=== PATIENT | female | born 1940 | race Caucasian/White ===

== ENCOUNTER 2019-05-22 10:59 | Inpatient (IN) | payer MEDICARE, OTHER, SELFPAY ==
[2019-05-22] VITALS (10 sets, daily range): BP systolic 136–165; BP diastolic 54–70; PULSE 62–74; RESP 11–20; TEMP 36.6–36.7; O2SAT 95–100; BMI 30.7
[2019-05-22 11:22] LABS: Add Manual Diff / Slide Review NO; Basophils Absolute Auto 0 /uL (0-100); Basophils Percent Auto 0.4 % (0-2); Eosinophils Absolute Auto 100 /uL (0-450); Hematocrit 41.2 % (36-46); Hemoglobin 14.7 g/dL (12.0-16.0); Lymphocytes Absolute Auto 900 /uL (1100-4500); Mean Corpuscular HGB Conc 35.6 % (30-36); Mean Corpuscular Hemoglobin 34.5 PG (26-34); Mean Corpuscular Volume 96.7 fL (80-100); Monocytes Absolute Auto 600 /uL (0-900); Neutrophils Absolute Auto 7600 /uL (1500-7000); Neutrophils Percent Auto 81.6 % (50-75); Platelet Count 226 X10^3/uL (150-400); Red Blood Cell Count 4.26 X10^6/uL (4.0-5.2); Red Cell Distribution Width 12.8 % (11.6-14.8); White Blood Cell Count 9.3 X10^3/uL (4.5-11.0)
[2019-05-22] MEDS: SODIUM CHLORIDE 0.9% 1,000 ML 1000 ML IV (11:23)
[2019-05-22] MEDS: ONDANSETRON 4 MG/2 ML INJ IV (11:23)
[2019-05-22 11:25] LABS: Prothrombin Time 11.3 SECONDS (10.1-12.7)
[2019-05-22 11:28] LABS: PTT Partial Thromboplastin Tim 28 SECONDS (26.4-36.2)
[2019-05-22 11:30] LABS: Alanine Aminotransferase 83 IU/L (9-52); Albumin 4.2 g/dL (3.5-5.0); Albumin Globulin Ratio 1.6 (1.0-2.8); Alkaline Phosphatase 64 U/L (38-126); Aspartate Aminotransferase 115 IU/L (14-36); BUN Creatinine Ratio 11.5 (6-22); Bilirubin Total 1.9 mg/dL (0.2-1.3); Blood Urea Nitrogen 15 mg/dL (7-17); Calcium 8.6 mg/dL (8.4-10.2); Carbon Dioxide 26 mmol/L (22-32); Chloride 103 mmol/L (98-107); Creatine Kinase 56 U/L (30-135); Estimated Glomerular Filt Rate 39.4 mL/min (>60); Globulin 2.6 g/dL (1.7-4.1); Glucose 142 mg/dL (80-110); HEMOLYSIS < 15 (0-50); Potassium 3.6 mmol/L (3.4-5.1); Sodium 139 mmol/L (137-145); Total Protein 6.8 g/dL (6.3-8.2)
[2019-05-22 11:41] LABS: Troponin I < 0.012 ng/mL (0.01-0.034)
--- NOTE | 2019-05-22 11:56 | ED.ABDPAIN ---
HPI - Abdominal Pain General Chief Complaint: Abdominal Pain Stated Complaint: Diarhhea,passed out Time Seen by Provider: 05/22/19 11:21 Source: patient and family () Limitations: no limitations History of Present Illness HPI narrative: 79-year-old female comes to the emergency department with complaint of vomiting and diarrhea that is been intermittent since a week ago. Patient states yesterday her symptoms began. But today again she had diarrhea but no vomiting. She is complaining of abdominal pain sort of in the middle of her belly. Does not really radiate anywhere. She does have a little bit of lower back discomfort. This morning she was sort of sweaty. She has not any bright red blood or melanotic stools. This is her 3rd episode in several months. The prior times episodes lasted a couple hours and then resolved. She has had no fevers or chills otherwise. She denies any chest pressure or pain, no shortness of breath. She was sitting on the toilet she just had diarrhea and had a syncopal episode that was witnessed by her . She states that her head rolled back her eyes rolled into the back of her head and she was out for about 30 seconds and then returned to normal almost immediately. Patient takes atenolol for hypertension, dyslipidemia. No diabetes, no prior heart attacks or strokes. Per she has had a complete hysterectomy, patient was not unsure. No allergies to medications, no tobacco, rare alcohol, no illicit. Dr. Little from [facility] is her primary care. Related Data Home Medications Medication Instructions Recorded Confirmed amlodipine 5 mg PO DAILY 05/22/19 05/22/19 Allergies Allergy/AdvReac Type Severity Reaction Status Date / Time No Known Drug Allergies Allergy Verified 05/22/19 11:10 Review of Systems Review of Systems ROS Unobtainable: All systems reviewed & are unremarkable except as noted in HPI and below Constitutional Denies chills, Reports excessive sweating (This morning), Denies fever(s), Denies lethargy and Denies weakness Cardiovascular Denies chest pain, Reports syncope (X1), Denies irregular heart rhythm, Denies lightheadedness, Denies palpitations, Denies dyspnea, Denies dyspnea on exertion and Denies orthopnea Respiratory Denies change in phlegm color, Denies chest congestion, Denies cough, Denies dyspnea, Denies dyspnea on exertion and Denies wheezing Gastrointestinal Gastrointestinal: Reports abdominal pain, Denies melena, Denies hematochezia, Denies change in bowel habits, Denies constipation, Reports diarrhea, Reports nausea, Reports vomiting and Denies hematemesis Genitourinary Denies hematuria, Denies urinary frequency, Denies dysuria, Denies flank pain, Denies urinary incontinence and Denies urinary urgency Musculoskeletal Reports back pain (Mild low back pain), Denies numbness and Denies tingling Integumentary/Breasts Denies rash Neurologic Denies confusion, Reports syncope (X1), Denies focal weakness, Denies numbness, Denies tingling and Denies weakness Psychiatric Denies confusion Endocrine Reports excessive sweating (This morning) and Denies palpitations Allergic/Immunologic Denies wheezing [facility] Medical History (Updated 05/22/19 @ 15:26 by Karen Hicks DO) Dyslipidemia (Chronic) Hypertension (Chronic) Surgical History Status post breast reduction Status post hysterectomy Family History (Updated 02/13/15 @ 00:00 by Conversion Provider) Brother Diabetes mellitus Hypertension Father Heart disease Hypertension Stroke Sister Heart disease Hypertension High cholesterol Stroke Sister High cholesterol Social History Smoking Status: Former smoker Family History Brother Diabetes mellitus Hypertension Father Heart disease Hypertension Stroke Sister Heart disease Hypertension High cholesterol Stroke Sister High cholesterol Social History (Updated 05/22/19 @ 12:00 by Karen Hicks DO) marital status: details: 10 years household members: spouse Smoking Status: Former smoker alcohol intake: current substance use type: does not use Exam Narrative Exam Narrative: GENERAL: Alert and oriented x three, obese, well-appearing elderly female in mild distress. HEENT: Head normocephalic, atraumatic, EOMI, pupils reactive, face symmetric, moist mucous membranes NECK: Supple, full range of motion CARDIOVASCULAR: Regular rate and rhythm without murmurs, rubs or gallops. RESPIRATORY: Breath sounds equal bilaterally, no wheezes rales or rhonchi. ABDOMEN: Soft, very mild periumbilical tenderness. Normoactive bowel sounds all 4 quadrants. No guarding or rebound, rigidity, no mass, no pulsatile mass or bruit. : No CVA tenderness EXTREMITIES: Normal range of motion, no clubbing or edema. 2+ pulses bilateral lower extremities. Neurovascularly intact NEUROLOGICAL: Cranial nerves II through XII grossly intact. Moving all extremities SKIN: Warm, dry, no petechiae, no rashes or lesions. Initial Vital Signs Initial Vital Signs: Vital Signs Temperature 98.1 F 05/22/19 11:07 Pulse Rate 65 05/22/19 11:07 Respiratory Rate 14 05/22/19 11:07 Pulse Oximetry 100 05/22/19 11:07 Course Orders Ordered: ED Orders 05/22/19 11:10 EKG-12 Lead Stat 05/22/19 11:11 Complete Blood Count AUTO DIFF Stat Comprehensive Metabolic Panel Stat Lipase Stat Partial Thromboplastin Time Stat Prothrombin Time INR Stat cardiac panel [Troponin & CK Cardiac Panel] Stat 05/22/19 11:55 CT abdomen pelvis w con Stat Lactate (Lactic Acid) Stat 05/22/19 13:29 US abdomen limited Stat 05/22/19 13:40 Urine Culture Stat Urine Microscopic Stat 05/22/19 17:13 Education, smoking cessation ONGOING 05/23/19 05:00 Complete Blood Count AUTO DIFF Routine Comprehensive Metabolic Panel Routine Acetaminophen (Tylenol) 650 mg PO Q6HR PRN PRN Reason: As Needed for Fever/Mild Pain Amlodipine Besylate (Norvasc) 5 mg PO DAILY ARSENIO Bisacodyl (Dulcolax) 10 mg PO DAILY PRN PRN Reason: Constipation Enoxaparin Sodium (Lovenox) 30 mg SUBCUT DAILY [facility] Sodium Chloride (Normal Saline 0.9%) 1,000 mls @ 150 mls/hr IV BOLUS ONE Stop: 05/22/19 20:25 Last Infusion: 05/22/19 16:05 Dose: 150 mls/hr Admin: 05/22/19 13:55 Dose: 150 mls/hr Lactated Ringer's (Lactated Ringers) 1,000 mls @ 100 mls/hr IV CONT ARSENIO Last Admin: 05/22/19 17:47 Dose: 100 mls/hr Ondansetron HCl (Zofran) 4 mg IV Q4HR PRN PRN Reason: Nausea And Vomiting Discontinued Medications Sodium Chloride (Normal Saline 0.9%) 1,000 mls @ 1,000 mls/hr IV BOLUS ONE Stop: 05/22/19 12:10 Last Infusion: 05/22/19 13:00 Dose: 0 mls/hr Admin: 05/22/19 11:23 Dose: 1,000 mls/hr Ondansetron HCl (Zofran) 4 mg IV NOW ONE Stop: 05/22/19 11:11 Last Admin: 05/22/19 11:23 Dose: 4 mg Vital Signs - 8 hr 05/22/19 11:07 05/22/19 11:30 05/22/19 12:06 Temperature 98.1 F Pulse Rate 65 62 68 Respiratory Rate 14 16 11 L Blood Pressure Blood Pressure [Right Arm] 136/61 154/54 H Pulse Oximetry 100 97 97 05/22/19 12:30 05/22/19 13:30 05/22/19 14:00 Temperature Pulse Rate 70 68 69 Respiratory Rate 14 13 Blood Pressure Blood Pressure [Right Arm] 144/54 H 165/66 H 147/63 H Pulse Oximetry 98 100 05/22/19 15:00 05/22/19 16:37 Temperature 97.9 F Pulse Rate 71 73 Respiratory Rate 20 Blood Pressure 163/70 H Blood Pressure [Right Arm] 153/59 H Pulse Oximetry 97 97 MDM - Abdominal Pain Lab Data Attestation: I reviewed the patient's lab results. Result diagrams: 05/22/19 11:11 05/22/19 11:11 Lab Results 05/22/19 05/22/19 05/22/19 Range/Units 11:11 11:11 11:11 WBC 9.3 (4.5-11.0) X10^3/uL RBC 4.26 (4.0-5.2) X10^6/uL Hgb 14.7 (12.0-16.0) g/dL Hct 41.2 (36-46) % MCV 96.7 (80-100) fL MCH 34.5 H (26-34) PG MCHC 35.6 (30-36) % RDW 12.8 (11.6-14.8) % Plt Count 226 (150-400) X10^3/uL Neut % (Auto) 81.6 H (50-75) % Lymph % (Auto) 10.0 L (25-40) % [place] % (Auto) 7.0 (3-14) % Eos % (Auto) 1.0 L (2-4) % Baso % (Auto) 0.4 (0-2) % Neut # (Auto) 7600 H (1640-2354) /uL Lymph # (Auto) 900 L (9048-3780) /uL [place] # (Auto) 600 (0-900) /uL Eos # (Auto) 100 (0-450) /uL Baso # (Auto) 0 (0-100) /uL PT 11.3 (10.1-12.7) SECONDS INR 1.0 (0.9-1.3) APTT 28 (26.4-36.2) SECONDS Sodium 139 (137-145) mmol/L Potassium 3.6 (3.4-5.1) mmol/L Chloride 103 (98-107) mmol/L Carbon Dioxide 26 (22-32) mmol/L BUN 15 (7-17) mg/dL Creatinine 1.30 H (0.52-1.04) mg/dL Estimated GFR 39.4 L (>60) mL/min BUN/Creatinine Ratio 11.5 (6-22) Glucose 142 H (80-110) mg/dL Lactate (0.7-2.1) mmol/L Calcium 8.6 (8.4-10.2) mg/dL Total Bilirubin 1.9 H (0.2-1.3) mg/dL AST 115 H (14-36) IU/L ALT 83 H (9-52) IU/L Alkaline Phosphatase 64 (38-126) U/L Total Creatine Kinase 56 (30-135) U/L CK-MB (CK-2) TNP CK-MB (CK-2) Rel Index TNP Troponin I < 0.012 (0.01-0.034) ng/mL Total Protein 6.8 (6.3-8.2) g/dL Albumin 4.2 (3.5-5.0) g/dL Globulin 2.6 (1.7-4.1) g/dL Albumin/Globulin Ratio 1.6 (1.0-2.8) Lipase 9563 H (23-300) U/L Urine RBC (0-5/HPF) Urine WBC (0-5/HPF) Ur Squamous Epith Cells (0-5/HPF) Urine Bacteria (None) Ur Culture Indicated? 05/22/19 05/22/19 Range/Units 11:55 13:40 WBC (4.5-11.0) X10^3/uL RBC (4.0-5.2) X10^6/uL Hgb (12.0-16.0) g/dL Hct (36-46) % MCV (80-100) fL MCH (26-34) PG MCHC (30-36) % RDW (11.6-14.8) % Plt Count (150-400) X10^3/uL Neut % (Auto) (50-75) % Lymph % (Auto) (25-40) % [place] % (Auto) (3-14) % Eos % (Auto) (2-4) % Baso % (Auto) (0-2) % Neut # (Auto) (2961-5952) /uL Lymph # (Auto) (9448-6789) /uL [place] # (Auto) (0-900) /uL Eos # (Auto) (0-450) /uL Baso # (Auto) (0-100) /uL PT (10.1-12.7) SECONDS INR (0.9-1.3) APTT (26.4-36.2) SECONDS Sodium (137-145) mmol/L Potassium (3.4-5.1) mmol/L Chloride (98-107) mmol/L Carbon Dioxide (22-32) mmol/L BUN (7-17) mg/dL Creatinine (0.52-1.04) mg/dL Estimated GFR (>60) mL/min BUN/Creatinine Ratio (6-22) Glucose (80-110) mg/dL Lactate 1.2 (0.7-2.1) mmol/L Calcium (8.4-10.2) mg/dL Total Bilirubin (0.2-1.3) mg/dL AST (14-36) IU/L ALT (9-52) IU/L Alkaline Phosphatase (38-126) U/L Total Creatine Kinase (30-135) U/L CK-MB (CK-2) CK-MB (CK-2) Rel Index Troponin I (0.01-0.034) ng/mL Total Protein (6.3-8.2) g/dL Albumin (3.5-5.0) g/dL Globulin (1.7-4.1) g/dL Albumin/Globulin Ratio (1.0-2.8) Lipase (23-300) U/L Urine RBC None seen (0-5/HPF) Urine WBC 0-1/hpf (0-5/HPF) Ur Squamous Epith Cells None seen (0-5/HPF) Urine Bacteria Few (2-10) H (None) Ur Culture Indicated? Specimen cultured Point of care testing: Urine Dip Bedside Urine Glucose Negative Bedside Urine Bilirubin - Negative Bedside Urine Ketone - Negative Urine Specific [place] 1.010 Bedside Urine Occult Blood - Negative Bedside Urine pH 6.5 Bedside Urine Protein - Negative Bedside Urine Urobilinogen - Negative Bedside Urine Nitrite - Negative Bedside Urine Leukocytes + [address] scan - abdomen: Radiologist's impression: [address] [address] [address] Scan Report Signed Patient: Sindi Hewitt EMR#: [id number] : 9Acct:[id number] Age/Sex: 79 / FDate of Service: 05/22/19 Loc: ED Accession Number: [id number] Procedure: CT abdomen pelvis w con Ordering Provider: Karen Hicks D.O. PROCEDURE: CT ABDOMEN PELVIS W CON INDICATIONS: abd pain, vomit/diarrhia x 1 week, syncope today TECHNIQUE: After the administration of intravenous contrast, 5 mm thick sections acquired from the diaphragm to the symphysis. 5 mm coronal and sagittal reformats were acquired. For radiation dose reduction, the following was used: automated exposure control, adjustment of mA and/or kV according to patient size. COMPARISON: None. FINDINGS: Image quality: Excellent. ABDOMEN: Lung bases: Lung bases are clear. Heart size is at the upper limits of normal. Mild distal esophageal wall edema and small epiphrenic diverticulum/hiatal hernia. Solid organs: Liver is normal in size and enhancement. Gallbladder is distended but appears otherwise normal. Pancreas enhances normally. The pancreatic duct is moderately dilated measuring 4 mm in the head and neck. There is mild central intrahepatic biliary dilatation. The extrahepatic common duct is normal caliber for patient's age. Spleen is normal in size and enhancement. The there is a small hypodense nodule near the hilum measuring about 1.1 cm one. No adrenal nodules. Kidneys demonstrate normal size and enhancement, without hydronephrosis. Peritoneum and bowel: There is decompression, numerous diverticula, and moderate wall thickening involving the sigmoid colon with mild adjacent fat stranding. The entire colon demonstrates mild wall edema and decompression. There are no other focal pericolonic inflammatory changes. Small bowel loops are fairly decompressed diffusely. A normal appendix is identified. Gastric mucosa is mildly hyperemic. No significant perigastric inflammation. No free fluid or air. Nodes and vessels: No retroperitoneal or mesenteric adenopathy by size criteria. Aorta and inferior vena cava are normal in size. Moderate aortic calcification. Miscellaneous: Tiny umbilical hernia.. PELVIS: Genitourinary: The urinary bladder is partially decompressed. The uterus and ovaries are surgically absent. No Miscellaneous: No inguinal hernias or adenopathy. Bones: No suspicious bony lesions. No vertebral body compression fractures. IMPRESSION: 1. Findings of probable acute on chronic diverticulitis involving the sigmoid colon. 2. Diffuse colonic spasm with mild wall edema suggesting either reactive colitis or potentially infectious or inflammatory colitis involving much of the rest of the colon. 3. Mild pancreatic or biliary ductal dilatation including gallbladder dilatation. Correlate clinically and with LFTs. No visible mechanical obstruction. 4. Mild distal esophageal edema and upper phrenic diverticulum, probably accentuated by history of vomiting. No evidence of small bowel obstruction. Dictated by: Briana Arevalo M.D. on 05/22/2019 at 11:27 Approved by: Briana Arevalo M.D. on 05/22/2019 at 11:37 US - abdomen: Radiologist's impression: [place] [address] Ultrasound Report Signed Patient: Sindi Hewitt EMR#: [id number] : 9Acct:[id number] Age/Sex: 79 / FDate of Service: 05/22/19 Loc: ED Accession Number: [id number] Procedure: US abdomen limited Ordering Provider: Karen Hicks D.O. PROCEDURE: US ABDOMEN LIMITED INDICATIONS: PANCREATITIS TECHNIQUE: Real-time focused scanning was performed of the abdomen, with image documentation. COMPARISON: [facility], CT, CT ABDOMEN PELVIS W CON, 05/22/2019, 11:54. FINDINGS: The gallbladder is distended, contains a small amount of sludge layering dependently, but no stone. It has a normal wall thickness at less than 1 mm. The visible portions of the common bile duct measures 7.7 mm, normal for patient's age. Pancreatic duct is mildly dilated measuring up to 4 mm. pancreas has an otherwise normal sonographic appearance. IMPRESSION: 1. There is a small amount of gallbladder sludge layering dependently but no visible stone. 2. Common duct within normal limits for patient's age. No definite choledocholithiasis. 3. Mildly dilated pancreatic duct consistent with CT appearance. If there is continued concern for distal common duct obstruction, MRCP imaging is recommended. Dictated by: Briana Arevalo M.D. on 05/22/2019 at 12:57 Approved by: Briana Arevalo M.D. on 05/22/2019 at 13:01 ECG Data Attestation: I personally reviewed and interpreted this ECG as follows: Prior ECG tracings: not available for review Interpretation: Sinus rhythm rate of 64 RI 169 QRS of 92 and QTC of 450. Q-wave in [address] elevation depression appreciated. MDM Narrative Medical decision making narrative: Patient comes in the with abdominal pain and intermittent vomiting and diarrhea. She appears at pancreatitis with a lipase of 9500, bilirubin and AST LT are all elevated. The patient's CT shows a possible ductal dilation. Some possible thickening of the colon wall. The patient ultrasound does not show clear ductal dilation an MRCP is potentially recommended. The patient likely does not need ERCP at this time. Spoke with Dr. umaña to accepts. Patient has been afebrile, she does not have a white count. Creatinine is 1.3 I do not have labs for comparison. Troponin was negative with the EKG with no acute findings. Patient did have a syncopal episode while on the toilet. Discharge Plan Departure Patient Disposition: Admitted As Inpatient Clinical Impression: Acute pancreatitis Discharge Date/Time: 05/22/19 16:00 Interventions: ED Discharge Assessment Last Done: 05/22/19 16:06 Admit Date/Time: 05/22/19 15:46 Admit Provider: Daniel Reinoso
--- NOTE | 2019-05-22 12:01 | ED_ITS ---
HPI - Abdominal Pain General Chief Complaint: Abdominal Pain Stated Complaint: Diarhhea,passed out Time Seen by Provider: 05/22/19 11:21 Source: patient and family () Limitations: no limitations History of Present Illness HPI narrative: 79-year-old female comes to the emergency department with complaint of vomiting and diarrhea that is been intermittent since a week ago. Patient states yesterday her symptoms began. But today again she had diarrhea but no vomiting. She is complaining of abdominal pain sort of in the middle of her belly. Does not really radiate anywhere. She does have a little bit of lower back discomfort. This morning she was sort of sweaty. She has not any bright red blood or melanotic stools. This is her 3rd episode in several months. The prior times episodes lasted a couple hours and then resolved. She has had no fevers or chills otherwise. She denies any chest pressure or pain, no shortness of breath. She was sitting on the toilet she just had diarrhea and had a syncopal episode that was witnessed by her . She states that her head rolled back her eyes rolled into the back of her head and she was out for about 30 seconds and then returned to normal almost immediately. Patient takes atenolol for hypertension, dyslipidemia. No diabetes, no prior heart attacks or strokes. Per she has had a complete hysterectomy, patient was not unsure. No allergies to medications, no tobacco, rare alcohol, no illicit. Dr. Little from [facility] is her primary care. Related Data Home Medications Medication Instructions Recorded Confirmed amlodipine 5 mg PO DAILY 05/22/19 05/22/19 Allergies Allergy/AdvReac Type Severity Reaction Status Date / Time No Known Drug Allergies Allergy Verified 05/22/19 11:10 Review of Systems Review of Systems ROS Unobtainable: All systems reviewed & are unremarkable except as noted in HPI and below Constitutional Denies chills, Reports excessive sweating (This morning), Denies fever(s), Denies lethargy and Denies weakness Cardiovascular Denies chest pain, Reports syncope (X1), Denies irregular heart rhythm, Denies lightheadedness, Denies palpitations, Denies dyspnea, Denies dyspnea on exertion and Denies orthopnea Respiratory Denies change in phlegm color, Denies chest congestion, Denies cough, Denies dyspnea, Denies dyspnea on exertion and Denies wheezing Gastrointestinal Gastrointestinal: Reports abdominal pain, Denies melena, Denies hematochezia, Denies change in bowel habits, Denies constipation, Reports diarrhea, Reports nausea, Reports vomiting and Denies hematemesis Genitourinary Denies hematuria, Denies urinary frequency, Denies dysuria, Denies flank pain, Denies urinary incontinence and Denies urinary urgency Musculoskeletal Reports back pain (Mild low back pain), Denies numbness and Denies tingling Integumentary/Breasts Denies rash Neurologic Denies confusion, Reports syncope (X1), Denies focal weakness, Denies numbness, Denies tingling and Denies weakness Psychiatric Denies confusion Endocrine Reports excessive sweating (This morning) and Denies palpitations Allergic/Immunologic Denies wheezing [facility] Medical History (Updated 05/22/19 @ 15:26 by Karen Hicks DO) Dyslipidemia (Chronic) Hypertension (Chronic) Surgical History Status post breast reduction Status post hysterectomy Family History (Updated 02/13/15 @ 00:00 by Conversion Provider) Brother Diabetes mellitus Hypertension Father Heart disease Hypertension Stroke Sister Heart disease Hypertension High cholesterol Stroke Sister High cholesterol Social History Smoking Status: Former smoker Family History Brother Diabetes mellitus Hypertension Father Heart disease Hypertension Stroke Sister Heart disease Hypertension High cholesterol Stroke Sister High cholesterol Social History (Updated 05/22/19 @ 12:00 by Karen Hicks DO) marital status: details: 10 years household members: spouse Smoking Status: Former smoker alcohol intake: current substance use type: does not use Exam Narrative Exam Narrative: GENERAL: Alert and oriented x three, obese, well-appearing elderly female in mild distress. HEENT: Head normocephalic, atraumatic, EOMI, pupils reactive, face symmetric, moist mucous membranes NECK: Supple, full range of motion CARDIOVASCULAR: Regular rate and rhythm without murmurs, rubs or gallops. RESPIRATORY: Breath sounds equal bilaterally, no wheezes rales or rhonchi. ABDOMEN: Soft, very mild periumbilical tenderness. Normoactive bowel sounds all 4 quadrants. No guarding or rebound, rigidity, no mass, no pulsatile mass or bruit. : No CVA tenderness EXTREMITIES: Normal range of motion, no clubbing or edema. 2+ pulses bilateral lower extremities. Neurovascularly intact NEUROLOGICAL: Cranial nerves II through XII grossly intact. Moving all extremities SKIN: Warm, dry, no petechiae, no rashes or lesions. Initial Vital Signs Initial Vital Signs: Vital Signs Temperature 98.1 F 05/22/19 11:07 Pulse Rate 65 05/22/19 11:07 Respiratory Rate 14 05/22/19 11:07 Pulse Oximetry 100 05/22/19 11:07 Course Orders Ordered: ED Orders 05/22/19 11:10 EKG-12 Lead Stat 05/22/19 11:11 Complete Blood Count AUTO DIFF Stat Comprehensive Metabolic Panel Stat Lipase Stat Partial Thromboplastin Time Stat Prothrombin Time INR Stat cardiac panel [Troponin & CK Cardiac Panel] Stat 05/22/19 11:55 CT abdomen pelvis w con Stat Lactate (Lactic Acid) Stat 05/22/19 13:29 US abdomen limited Stat 05/22/19 13:40 Urine Culture Stat Urine Microscopic Stat 05/22/19 17:13 Education, smoking cessation ONGOING 05/23/19 05:00 Complete Blood Count AUTO DIFF Routine Comprehensive Metabolic Panel Routine Acetaminophen (Tylenol) 650 mg PO Q6HR PRN PRN Reason: As Needed for Fever/Mild Pain Amlodipine Besylate (Norvasc) 5 mg PO DAILY ARSENIO Bisacodyl (Dulcolax) 10 mg PO DAILY PRN PRN Reason: Constipation Enoxaparin Sodium (Lovenox) 30 mg SUBCUT DAILY [facility] Sodium Chloride (Normal Saline 0.9%) 1,000 mls @ 150 mls/hr IV BOLUS ONE Stop: 05/22/19 20:25 Last Infusion: 05/22/19 16:05 Dose: 150 mls/hr Admin: 05/22/19 13:55 Dose: 150 mls/hr Lactated Ringer's (Lactated Ringers) 1,000 mls @ 100 mls/hr IV CONT ARSENIO Last Admin: 05/22/19 17:47 Dose: 100 mls/hr Ondansetron HCl (Zofran) 4 mg IV Q4HR PRN PRN Reason: Nausea And Vomiting Discontinued Medications Sodium Chloride (Normal Saline 0.9%) 1,000 mls @ 1,000 mls/hr IV BOLUS ONE Stop: 05/22/19 12:10 Last Infusion: 05/22/19 13:00 Dose: 0 mls/hr Admin: 05/22/19 11:23 Dose: 1,000 mls/hr Ondansetron HCl (Zofran) 4 mg IV NOW ONE Stop: 05/22/19 11:11 Last Admin: 05/22/19 11:23 Dose: 4 mg Vital Signs - 8 hr 05/22/19 11:07 05/22/19 11:30 05/22/19 12:06 Temperature 98.1 F Pulse Rate 65 62 68 Respiratory Rate 14 16 11 L Blood Pressure Blood Pressure [Right Arm] 136/61 154/54 H Pulse Oximetry 100 97 97 05/22/19 12:30 05/22/19 13:30 05/22/19 14:00 Temperature Pulse Rate 70 68 69 Respiratory Rate 14 13 Blood Pressure Blood Pressure [Right Arm] 144/54 H 165/66 H 147/63 H Pulse Oximetry 98 100 05/22/19 15:00 05/22/19 16:37 Temperature 97.9 F Pulse Rate 71 73 Respiratory Rate 20 Blood Pressure 163/70 H Blood Pressure [Right Arm] 153/59 H Pulse Oximetry 97 97 MDM - Abdominal Pain Lab Data Attestation: I reviewed the patient's lab results. Result diagrams: 05/22/19 11:11 05/22/19 11:11 Lab Results 05/22/19 05/22/19 05/22/19 Range/Units 11:11 11:11 11:11 WBC 9.3 (4.5-11.0) X10^3/uL RBC 4.26 (4.0-5.2) X10^6/uL Hgb 14.7 (12.0-16.0) g/dL Hct 41.2 (36-46) % MCV 96.7 (80-100) fL MCH 34.5 H (26-34) PG MCHC 35.6 (30-36) % RDW 12.8 (11.6-14.8) % Plt Count 226 (150-400) X10^3/uL Neut % (Auto) 81.6 H (50-75) % Lymph % (Auto) 10.0 L (25-40) % [place] % (Auto) 7.0 (3-14) % Eos % (Auto) 1.0 L (2-4) % Baso % (Auto) 0.4 (0-2) % Neut # (Auto) 7600 H (3508-8859) /uL Lymph # (Auto) 900 L (7735-5729) /uL [place] # (Auto) 600 (0-900) /uL Eos # (Auto) 100 (0-450) /uL Baso # (Auto) 0 (0-100) /uL PT 11.3 (10.1-12.7) SECONDS INR 1.0 (0.9-1.3) APTT 28 (26.4-36.2) SECONDS Sodium 139 (137-145) mmol/L Potassium 3.6 (3.4-5.1) mmol/L Chloride 103 (98-107) mmol/L Carbon Dioxide 26 (22-32) mmol/L BUN 15 (7-17) mg/dL Creatinine 1.30 H (0.52-1.04) mg/dL Estimated GFR 39.4 L (>60) mL/min BUN/Creatinine Ratio 11.5 (6-22) Glucose 142 H (80-110) mg/dL Lactate (0.7-2.1) mmol/L Calcium 8.6 (8.4-10.2) mg/dL Total Bilirubin 1.9 H (0.2-1.3) mg/dL AST 115 H (14-36) IU/L ALT 83 H (9-52) IU/L Alkaline Phosphatase 64 (38-126) U/L Total Creatine Kinase 56 (30-135) U/L CK-MB (CK-2) TNP CK-MB (CK-2) Rel Index TNP Troponin I < 0.012 (0.01-0.034) ng/mL Total Protein 6.8 (6.3-8.2) g/dL Albumin 4.2 (3.5-5.0) g/dL Globulin 2.6 (1.7-4.1) g/dL Albumin/Globulin Ratio 1.6 (1.0-2.8) Lipase 9563 H (23-300) U/L Urine RBC (0-5/HPF) Urine WBC (0-5/HPF) Ur Squamous Epith Cells (0-5/HPF) Urine Bacteria (None) Ur Culture Indicated? 05/22/19 05/22/19 Range/Units 11:55 13:40 WBC (4.5-11.0) X10^3/uL RBC (4.0-5.2) X10^6/uL Hgb (12.0-16.0) g/dL Hct (36-46) % MCV (80-100) fL MCH (26-34) PG MCHC (30-36) % RDW (11.6-14.8) % Plt Count (150-400) X10^3/uL Neut % (Auto) (50-75) % Lymph % (Auto) (25-40) % [place] % (Auto) (3-14) % Eos % (Auto) (2-4) % Baso % (Auto) (0-2) % Neut # (Auto) (3601-6025) /uL Lymph # (Auto) (4577-8058) /uL [place] # (Auto) (0-900) /uL Eos # (Auto) (0-450) /uL Baso # (Auto) (0-100) /uL PT (10.1-12.7) SECONDS INR (0.9-1.3) APTT (26.4-36.2) SECONDS Sodium (137-145) mmol/L Potassium (3.4-5.1) mmol/L Chloride (98-107) mmol/L Carbon Dioxide (22-32) mmol/L BUN (7-17) mg/dL Creatinine (0.52-1.04) mg/dL Estimated GFR (>60) mL/min BUN/Creatinine Ratio (6-22) Glucose (80-110) mg/dL Lactate 1.2 (0.7-2.1) mmol/L Calcium (8.4-10.2) mg/dL Total Bilirubin (0.2-1.3) mg/dL AST (14-36) IU/L ALT (9-52) IU/L Alkaline Phosphatase (38-126) U/L Total Creatine Kinase (30-135) U/L CK-MB (CK-2) CK-MB (CK-2) Rel Index Troponin I (0.01-0.034) ng/mL Total Protein (6.3-8.2) g/dL Albumin (3.5-5.0) g/dL Globulin (1.7-4.1) g/dL Albumin/Globulin Ratio (1.0-2.8) Lipase (23-300) U/L Urine RBC None seen (0-5/HPF) Urine WBC 0-1/hpf (0-5/HPF) Ur Squamous Epith Cells None seen (0-5/HPF) Urine Bacteria Few (2-10) H (None) Ur Culture Indicated? Specimen cultured Point of care testing: Urine Dip Bedside Urine Glucose Negative Bedside Urine Bilirubin - Negative Bedside Urine Ketone - Negative Urine Specific [place] 1.010 Bedside Urine Occult Blood - Negative Bedside Urine pH 6.5 Bedside Urine Protein - Negative Bedside Urine Urobilinogen - Negative Bedside Urine Nitrite - Negative Bedside Urine Leukocytes + [address] scan - abdomen: Radiologist's impression: [address] [address] [address] Scan Report Signed Patient: Sindi Hewitt EMR#: [id number] : 9Acct:[id number] Age/Sex: 79 / FDate of Service: 05/22/19 Loc: ED Accession Number: [id number] Procedure: CT abdomen pelvis w con Ordering Provider: Karen Hicks D.O. PROCEDURE: CT ABDOMEN PELVIS W CON INDICATIONS: abd pain, vomit/diarrhia x 1 week, syncope today TECHNIQUE: After the administration of intravenous contrast, 5 mm thick sections acquired from the diaphragm to the symphysis. 5 mm coronal and sagittal reformats were acquired. For radiation dose reduction, the following was used: automated exposure control, adjustment of mA and/or kV according to patient size. COMPARISON: None. FINDINGS: Image quality: Excellent. ABDOMEN: Lung bases: Lung bases are clear. Heart size is at the upper limits of normal. Mild distal esophageal wall edema and small epiphrenic diverticulum/hiatal hernia. Solid organs: Liver is normal in size and enhancement. Gallbladder is distended but appears otherwise normal. Pancreas enhances normally. The pancreatic duct is moderately dilated measuring 4 mm in the head and neck. There is mild central intrahepatic biliary dilatation. The extrahepatic common duct is normal caliber for patient's age. Spleen is normal in size and enhancement. The there is a small hypodense nodule near the hilum measuring about 1.1 cm one. No adrenal nodules. Kidneys demonstrate normal size and enhancement, without hydronephrosis. Peritoneum and bowel: There is decompression, numerous diverticula, and moderate wall thickening involving the sigmoid colon with mild adjacent fat stranding. The entire colon demonstrates mild wall edema and decompression. There are no other focal pericolonic inflammatory changes. Small bowel loops are fairly decompressed diffusely. A normal appendix is identified. Gastric mucosa is mildly hyperemic. No significant perigastric inflammation. No free fluid or air. Nodes and vessels: No retroperitoneal or mesenteric adenopathy by size criteria. Aorta and inferior vena cava are normal in size. Moderate aortic calcification. Miscellaneous: Tiny umbilical hernia.. PELVIS: Genitourinary: The urinary bladder is partially decompressed. The uterus and ovaries are surgically absent. No Miscellaneous: No inguinal hernias or adenopathy. Bones: No suspicious bony lesions. No vertebral body compression fractures. IMPRESSION: 1. Findings of probable acute on chronic diverticulitis involving the sigmoid colon. 2. Diffuse colonic spasm with mild wall edema suggesting either reactive colitis or potentially infectious or inflammatory colitis involving much of the rest of the colon. 3. Mild pancreatic or biliary ductal dilatation including gallbladder dilatation. Correlate clinically and with LFTs. No visible mechanical obstruction. 4. Mild distal esophageal edema and upper phrenic diverticulum, probably accentuated by history of vomiting. No evidence of small bowel obstruction. Dictated by: Briana Arevalo M.D. on 05/22/2019 at 11:27 Approved by: Briana Arevalo M.D. on 05/22/2019 at 11:37 US - abdomen: Radiologist's impression: [place] [address] Ultrasound Report Signed Patient: Sindi Hewitt EMR#: [id number] : 9Acct:[id number] Age/Sex: 79 / FDate of Service: 05/22/19 Loc: ED Accession Number: [id number] Procedure: US abdomen limited Ordering Provider: Karen Hicks D.O. PROCEDURE: US ABDOMEN LIMITED INDICATIONS: PANCREATITIS TECHNIQUE: Real-time focused scanning was performed of the abdomen, with image documentation. COMPARISON: [facility], CT, CT ABDOMEN PELVIS W CON, 05/22/2019, 11:54. FINDINGS: The gallbladder is distended, contains a small amount of sludge layering dependently, but no stone. It has a normal wall thickness at less than 1 mm. The visible portions of the common bile duct measures 7.7 mm, normal for patient's age. Pancreatic duct is mildly dilated measuring up to 4 mm. pancreas has an otherwise normal sonographic appearance. IMPRESSION: 1. There is a small amount of gallbladder sludge layering dependently but no visible stone. 2. Common duct within normal limits for patient's age. No definite choledocholithiasis. 3. Mildly dilated pancreatic duct consistent with CT appearance. If there is continued concern for distal common duct obstruction, MRCP imaging is recommended. Dictated by: Briana Arevalo M.D. on 05/22/2019 at 12:57 Approved by: Briana Arevalo M.D. on 05/22/2019 at 13:01 ECG Data Attestation: I personally reviewed and interpreted this ECG as follows: Prior ECG tracings: not available for review Interpretation: Sinus rhythm rate of 64 ME 169 QRS of 92 and QTC of 450. Q-wave in [address] elevation depression appreciated. MDM Narrative Medical decision making narrative: Patient comes in the with abdominal pain and intermittent vomiting and diarrhea. She appears at pancreatitis with a lipase of 9500, bilirubin and AST LT are all elevated. The patient's CT shows a possible ductal dilation. Some possible thickening of the colon wall. The patient ultrasound does not show clear ductal dilation an MRCP is potentially recommended. The patient likely does not need ERCP at this time. Spoke with Dr. umaña to accepts. Patient has been afebrile, she does not have a white count. Creatinine is 1.3 I do not have labs for comparison. Troponin was negative with the EKG with no acute findings. Patient did have a syncopal episode while on the toilet. Discharge Plan Departure Patient Disposition: Admitted As Inpatient Clinical Impression: Acute pancreatitis Discharge Date/Time: 05/22/19 16:00 Interventions: ED Discharge Assessment Last Done: 05/22/19 16:06 Admit Date/Time: 05/22/19 15:46 Admit Provider: Daniel Reinoso
[2019-05-22 12:15] LABS: Lipase 9563 U/L (23-300)
[2019-05-22 12:19] LABS: Lactate (Lactic Acid) 1.2 mmol/L (0.7-2.1)
--- NOTE | 2019-05-22 13:29 | DI.US.S_ITS ---
PROCEDURE: US ABDOMEN LIMITED INDICATIONS: PANCREATITIS TECHNIQUE: Real-time focused scanning was performed of the abdomen, with image documentation. COMPARISON: [facility], CT, CT ABDOMEN PELVIS W CON, 05/22/2019, 11:54. FINDINGS: The gallbladder is distended, contains a small amount of sludge layering dependently, but no stone. It has a normal wall thickness at less than 1 mm. The visible portions of the common bile duct measures 7.7 mm, normal for patient's age. Pancreatic duct is mildly dilated measuring up to 4 mm. pancreas has an otherwise normal sonographic appearance. IMPRESSION: 1. There is a small amount of gallbladder sludge layering dependently but no visible stone. 2. Common duct within normal limits for patient's age. No definite choledocholithiasis. 3. Mildly dilated pancreatic duct consistent with CT appearance. If there is continued concern for distal common duct obstruction, MRCP imaging is recommended. Dictated by: Briana Arevalo M.D. on 05/22/2019 at 12:57 Approved by: Briana Arevalo M.D. on 05/22/2019 at 13:01
[2019-05-22 13:51] LABS: RBC Urine None Seen (0-5/HPF)
[2019-05-22] MEDS: SODIUM CHLORIDE 0.9% 1,000 ML 150 ML IV (13:55)
[2019-05-22 14:06] LABS: Bacteria Urine Few (2-10); Squamous Epithelial Cell Urine None Seen (0-5/HPF); WBC Urine 0-1/HPF (0-5/HPF)
[2019-05-22 14:07] LABS: Culture Indicated Urine Specimen Cultured
--- NOTE | 2019-05-22 17:16 | P.HP_ITS ---
History of Present Illness Date Patient Seen: 05/22/19 Chief complaint: Diarhhea,passed out Narrative: Patient is an 79-year-old female with history of hypertension presents to the emergency department with history of abdominal discomfort for the past week. She is a fair historian. She reports single episode of vomiting about a week ago. She states the abdominal pain has not been severe. The location of pain is in mid abdomen and does not radiate. She has been able to maintain adequate oral intake. She denies nausea or vomiting and denies melena or bright red blood. She reported to ER physician this was her 3rd episode GI discomfort in the past several months. Reported previous episodes lasted a co uple of hours and then resolved. She did not provide this history to me. She also mentioned some diarrhea to the ER physician but not to me. In addition, she had syncopal episode while on the toilet this morning. Syncope was apparently witnessed by her . ER workup included abnormal laboratories with elevated lipase of 9563, total bilirubin 1.9, AST 115, ALT 83, creatinine 1.3. Electrolytes and lactic acid were normal. Hemoglobin was 14.7. Abdomen and pelvis CT with contrast showed normally enhancing pancreas, moderately dilated pancreatic duct of 4 mm in head and neck, mild central intrahepatic biliary dilatation, with normal extrahepatic common duct. Also noted numerous diverticula in sigmoid colon, thickening sigmoid wall, with adjacent mild inflammatory changes. Abdominal ultrasound showed small amount gallbladder sludge without visible stone, normal common duct for age measuring 7.7 mm, no definite choledocholithiasis, mildly dilated pancreatic duct consistent with CT appearance. Patient History Medical History (Updated 05/22/19 @ 15:26 by Karen Hicks DO) Dyslipidemia (Chronic) Hypertension (Chronic) Surgical History Status post breast reduction Status post hysterectomy Family History (Updated 02/13/15 @ 00:00 by Conversion Provider) Brother Diabetes mellitus Hypertension Father Heart disease Hypertension Stroke Sister Heart disease Hypertension High cholesterol Stroke Sister High cholesterol Social History Smoking Status: Former smoker Family & Social History Family History Brother Diabetes mellitus Hypertension Father Heart disease Hypertension Stroke Sister Heart disease Hypertension High cholesterol Stroke Sister High cholesterol Social History: household members spouse Prior Living Arrangements House Safety & Behavioral: Feels Safe in Current Yes Environment Been Physically Hurt or No Threatened By a Person Suicidal Ideation Description None Suicide Plan Description No Plan Tobacco & Substance use: Smoking Status Former smoker alcohol intake current alcohol intake frequency a few times a month Substance Use Type does not use Meds Home Medications Medication Instructions Recorded Confirmed Type amlodipine 5 mg PO DAILY 05/22/19 05/22/19 History Allergies Allergy/AdvReac Type Severity Reaction Status Date / Time No Known Drug Allergies Allergy Verified 05/22/19 11:10 Review of Systems Review of Systems All systems reviewed & are unremarkable except as noted in HPI and below Exam Vital Signs (past 8 hours): - 05/22/19 11:07 05/22/19 11:30 05/22/19 12:06 Temperature 98.1 F Pulse Rate 65 62 68 Respiratory Rate 14 16 11 L Blood Pressure Blood Pressure [Right Arm] 136/61 154/54 H Pulse Oximetry 100 97 97 05/22/19 12:30 05/22/19 13:30 05/22/19 14:00 Temperature Pulse Rate 70 68 69 Respiratory Rate 14 13 Blood Pressure Blood Pressure [Right Arm] 144/54 H 165/66 H 147/63 H Pulse Oximetry 98 100 05/22/19 15:00 05/22/19 16:37 Temperature 97.9 F Pulse Rate 71 73 Respiratory Rate 20 Blood Pressure 163/70 H Blood Pressure [Right Arm] 153/59 H Pulse Oximetry 97 97 Oxygen Delivery Method Room Air Narrative Exam Narrative: GENERAL: Alert pleasant cooperative female in no acute distress HEAD: Atraumatic. Normocephalic. EYES: Pupils equal, round and reactive. Extraocular motions intact. No scleral icterus. No injection or drainage. OROPHARYNX: moist mucosa NECK: Trachea midline. No JVD or lymphadenopathy. CARDIOVASCULAR: Regular rate and rhythm without murmurs, gallops, or rubs. RESPIRATORY: Clear to auscultation bilaterally. GASTROINTESTINAL: Abdomen nondistended, soft, without reproducible tenderness. No hepato-splenomegaly, or palpable masses. EXTREMITIES: No edema. NEUROLOGICAL: Alert, oriented to person, time and place, no dysarthria, normal bilateral upper and lower extremity strength SKIN: warm, dry, no rash Objective Labs Result Diagrams: 05/22/19 11:11 05/22/19 11:11 Labs: Laboratory Results - last 24 hr 05/22/19 05/22/19 05/22/19 11:11 11:11 11:11 WBC 9.3 RBC 4.26 Hgb 14.7 Hct 41.2 MCV 96.7 MCH 34.5 H MCHC 35.6 RDW 12.8 Plt Count 226 Neut % (Auto) 81.6 H Lymph % (Auto) 10.0 L [place] % (Auto) 7.0 Eos % (Auto) 1.0 L Baso % (Auto) 0.4 Neut # (Auto) 7600 H Lymph # (Auto) 900 L [place] # (Auto) 600 Eos # (Auto) 100 Baso # (Auto) 0 PT 11.3 INR 1.0 APTT 28 Sodium 139 Potassium 3.6 Chloride 103 Carbon Dioxide 26 BUN 15 Creatinine 1.30 H Estimated GFR 39.4 L BUN/Creatinine Ratio 11.5 Glucose 142 H Lactate Calcium 8.6 Total Bilirubin 1.9 H AST 115 H ALT 83 H Alkaline Phosphatase 64 Total Creatine Kinase 56 CK-MB (CK-2) TNP CK-MB (CK-2) Rel Index TNP Troponin I < 0.012 Total Protein 6.8 Albumin 4.2 Globulin 2.6 Albumin/Globulin Ratio 1.6 Lipase 9563 H Urine RBC Urine WBC Ur Squamous Epith Cells Urine Bacteria Ur Culture Indicated? 05/22/19 05/22/19 11:55 13:40 WBC RBC Hgb Hct MCV MCH MCHC RDW Plt Count Neut % (Auto) Lymph % (Auto) [place] % (Auto) Eos % (Auto) Baso % (Auto) Neut # (Auto) Lymph # (Auto) [place] # (Auto) Eos # (Auto) Baso # (Auto) PT INR APTT Sodium Potassium Chloride Carbon Dioxide BUN Creatinine Estimated GFR BUN/Creatinine Ratio Glucose Lactate 1.2 Calcium Total Bilirubin AST ALT Alkaline Phosphatase Total Creatine Kinase CK-MB (CK-2) CK-MB (CK-2) Rel Index Troponin I Total Protein Albumin Globulin Albumin/Globulin Ratio Lipase Urine RBC None seen Urine WBC 0-1/hpf Ur Squamous Epith Cells None seen Urine Bacteria Few (2-10) H Ur Culture Indicated? Specimen cultured Assessment & Plan Assessment & Plan narrative: This is 79-year-old female admitted with recent non severe abdominal pain with biochemical and CT evidence of pancreatitis. 1. Acute pancreatitis -etiology possibly due to gallstone disease or biliary sludge versus intraductal tumor -admission labs lipase 9563, total bilirubin 1.9, AST 115, ALT 83 -patient has gallbladder sludge and mildly dilated pancreatic duct on ultrasound and CT without evidence of choledocholithiasis -symptoms are relatively mild in nature with mild discomfort for the past week and single reported episode of vomiting -clear liquid diet, IV fluids, acetaminophen as needed -repeat CBC and chemistries in a.m. -consider MRCP versus transfer to tertiary center for ERCP -possibly ERCP can also be done as outpatient if patient remains with mild symptoms 2. Renal failure, likely acute and pre renal -mild elevation of creatinine 1.3, unknown baseline -IV fluids 3. Hypertension -BP normal range -continue amlodipine 5 mg daily -check on repeat labs in a.m. 4. Situational syncope -reported syncope episode while on toilet suggests vasovagal etiology -EKG unremarkable -threat monitoring analyst Also note patient has appointment on 06/13/2019 to establish primary care with Dr. Socorro Little as her previous is not contracted with her health plan. Quality VTE Deep Vein Thrombosis/Pulmonary Embolism Present on Admission: No
[2019-05-22] MEDS: LACTATED RINGERS 1,000 ML 100 ML IV (17:47)
--- NOTE | 2019-05-22 18:22 | PC.ADMIT ---
[address] [place] [address] Admission Note: The patient,Sindi Hewitt,79 y/o, was given written information regarding hospital policies, unit procedures and contact persons. Patient's smoking status: Former smoker. Vital Signs - 8 hr 05/22/19 11:07 05/22/19 11:30 05/22/19 12:06 Temperature 98.1 F Pulse Rate 65 62 68 Respiratory Rate 14 16 11 L Blood Pressure Blood Pressure [Right Arm] 136/61 154/54 H Pulse Oximetry 100 97 97 05/22/19 12:30 05/22/19 13:30 05/22/19 14:00 Temperature Pulse Rate 70 68 69 Respiratory Rate 14 13 Blood Pressure Blood Pressure [Right Arm] 144/54 H 165/66 H 147/63 H Pulse Oximetry 98 100 05/22/19 15:00 05/22/19 16:37 Temperature 97.9 F Pulse Rate 71 73 Respiratory Rate 20 Blood Pressure 163/70 H Blood Pressure [Right Arm] 153/59 H Pulse Oximetry 97 97 Patient admitted from ER in stable condition. Transfer self from WC to bed, awake, alert, and very pleasant. No c/o abdominal pain, or nausea. Minimal tenderness to mid abdomen to palpation. Oriented to room, environment, and plan of care.
[2019-05-23] VITALS: O2SAT 95
[2019-05-23 05:15] VITALS: BP 108/64; PULSE 66; RESP 18; TEMP 36.6; O2SAT 94
[2019-05-23 05:55] LABS: Add Manual Diff / Slide Review NO; Basophils Absolute Auto 0 /uL (0-100); Basophils Percent Auto 0.6 % (0-2); Eosinophils Absolute Auto 100 /uL (0-450); Hematocrit 35.3 % (36-46); Hemoglobin 12.7 g/dL (12.0-16.0); Lymphocytes Absolute Auto 800 /uL (1100-4500); Mean Corpuscular HGB Conc 35.9 % (30-36); Mean Corpuscular Hemoglobin 34.4 PG (26-34); Mean Corpuscular Volume 95.8 fL (80-100); Monocytes Absolute Auto 700 /uL (0-900); Monocytes Percent Auto 10.2 % (3-14); Neutrophils Absolute Auto 5200 /uL (1500-7000); Neutrophils Percent Auto 76.2 % (50-75); Platelet Count 180 X10^3/uL (150-400); Red Blood Cell Count 3.69 X10^6/uL (4.0-5.2); Red Cell Distribution Width 12.7 % (11.6-14.8); White Blood Cell Count 6.8 X10^3/uL (4.5-11.0)
[2019-05-23 06:02] LABS: Alanine Aminotransferase 64 IU/L (9-52); Albumin 3.2 g/dL (3.5-5.0); Albumin Globulin Ratio 1.3 (1.0-2.8); Alkaline Phosphatase 47 U/L (38-126); Aspartate Aminotransferase 62 IU/L (14-36); Bilirubin Total 1.3 mg/dL (0.2-1.3); Blood Urea Nitrogen 9 mg/dL (7-17); Calcium 7.9 mg/dL (8.4-10.2); Carbon Dioxide 25 mmol/L (22-32); Chloride 107 mmol/L (98-107); Estimated Glomerular Filt Rate > 60.0 mL/min (>60); Globulin 2.4 g/dL (1.7-4.1); Glucose 98 mg/dL (80-110); HEMOLYSIS < 15 (0-50); Potassium 3.1 mmol/L (3.4-5.1); Sodium 140 mmol/L (137-145); Total Protein 5.6 g/dL (6.3-8.2)
[2019-05-23] MEDS: POTASSIUM CHLORIDE 40 MEQ in SODIUM CHLORIDE 0.9% 500 ML 130 ML IV (06:51)
[2019-05-23 07:31] LABS: Cholesterol 127 mg/dL (140-199); HDL Cholesterol 32 mg/dL (40-60); LDL Cholesterol Calculated 77 mg/dL (<100); Triglycerides 88 mg/dL (35-150)
[2019-05-23 07:34] LABS: Lipase 1346 U/L (23-300)
--- NOTE | 2019-05-23 07:34 | DI.MRI.S_ITS ---
PROCEDURE: MR ABDOMEN WO CON INDICATIONS: pancreatitis, panc duct dilated TECHNIQUE: Coronal HASTE through the abdomen, axial 2-D FLASH in- and [id number], and breath-hold T2 FSE with fat saturation through the biliary system and pancreas. Oblique coronal and axial thin-slice HASTE, radial thick-slab HASTE centered on the extrahepatic bile ducts. Intravenous secretin: Not requested. COMPARISON: [facility], US, US ABDOMEN LIMITED, 05/22/2019, 13:39. [facility], CT, CT ABDOMEN PELVIS W CON, 05/22/2019, 11:54. FINDINGS: Image quality: Excellent. Pancreas and biliary system: Intrahepatic biliary ducts are mildly prominent. The extrahepatic common duct measures about 8 mm, normal for the patient's age. A central hypointensity in the common duct is consistent with flow artifact. No convincing filling defects. There is abrupt tapering of the common duct at the ampulla. The gallbladder is distended but without stones or visible sludge. The pancreatic duct measures between 3.5 and 4 mm, demonstrates classic anatomy, and is smooth. No visible sidebranch dilatation or filling defects the pancreatic duct. The pancreatic gland morphology demonstrates a normal contour and signal. No peripancreatic edema or fluid. Other solid organs: Liver is normal in size. Very minor signal drop in the hepatic parenchyma on out of phase T1 imaging indicates very mild amount of hepatic steatosis. Spleen is normal in size. 1.2 cm mildly heterogeneous T2 hyperintense, T1 isointense lesion in the splenic hilum is again noted, most likely hemangioma or lymphangioma. No adrenal nodules. Both kidneys are normal in size, without hydronephrosis. Nodes and vessels: No retroperitoneal or mesenteric adenopathy by size criteria. Aorta and inferior vena cava are normal in size. Bowel and peritoneum: Unenhanced bowel loops are normal in caliber. No free fluid. Lung bases: No basal pleural effusions. Heart size is normal. Bones and soft tissues: No ventral hernias. Bone marrow is of normal overall signal. IMPRESSION: 1. No convincing filling defect in the distal common duct or pancreatic duct. Abrupt tapering of common duct may be secondary to a small stricture, less likely a ampullary neoplasm. Based on patient's clinical situation and LFTs, patient may benefit from sphincterotomy plus or minus brushings. Clinical correlation recommended. 2. No MR evidence of peripancreatic edema or fluid collections to indicate an acute pancreatitis. However low grade pancreatitis by labs may be occult on imaging. Mild pancreatic ductal dilatation may be secondary to a prior episode of pancreatitis. 3. Incidental note made of minor hepatic steatosis and 1.2 cm splenic hilum lesion most likely a benign hemangioma. Dictated by: Briana Arevalo M.D. on 05/23/2019 at 8:04 Approved by: Briana Arevalo M.D. on 05/23/2019 at 8:28
[2019-05-23 08:00] VITALS: BP 112/59; PULSE 63; RESP 14; RESP 16; TEMP 36.7; O2SAT 96
--- NOTE | 2019-05-23 09:23 | CM.DANOTE ---
DCP: Case received, EMR reviewed and met with patient. Introduced self and role. Was able to obtain some baseline health history information from patient. DCP template assessment completed with information currently available. Patient is an 79 year old female who admitted yesterday afternoon to the care of the hospitalist team. PCP: Dr. Little. Payer: confirmed: Medicare/[employer]. Patient came to the hospital secondary to abdominal pain, as well as vomiting and diarrhea. Patient holds diagnosis of acute pancreatitis. Met with patient in her room. pleasant. Was sitting up eating her breakfast after she came back from some tests. Confirmed that she resides in [place] with her spouse of ten years, Devonte. She stated, she is independent, drives, has her own vehicle. She is anxious to go home, but is eager to talk to the doctor about her tests. P: DCP to continue to follow. Patient should be able to go home when she is medically stable. Fawn Sherwood RN/[employer]der Operator.
[2019-05-23] MEDS: AMLODIPINE 5 MG TABLET PO (10:02)
[2019-05-23] MEDS: ENOXAPARIN 30 MG/0.3 ML SYRINGE SUBCUT (10:02)
--- NOTE | 2019-05-23 11:33 | PM.DS.1 ---
History of Present Illness Chief complaint: Diarhhea,passed out Narrative: Patient is an 79-year-old female with history of hypertension presents to the emergency department with history of abdominal discomfort for the past week. She is a fair historian. She reports single episode of vomiting about a week ago. She states the abdominal pain has not been severe. The location of pain is in mid abdomen and does not radiate. She has been able to maintain adequate oral intake. She denies nausea or vomiting and denies melena or bright red blood. She reported to ER physician this was her 3rd episode GI discomfort in the past several months. Reported previous episodes lasted a couple of hours and then resolved. She did not provide this history to me. She also mentioned some diarrhea to the ER physician but not to me. In addition, she had syncopal episode while on the toilet this morning. Syncope was apparently witnessed by her . ER workup included abnormal laboratories with elevated lipase of 9563, total bilirubin 1.9, AST 115, ALT 83, creatinine 1.3. Electrolytes and lactic acid were normal. Hemoglobin was 14.7. Abdomen and pelvis CT with contrast showed normally enhancing pancreas, moderately dilated pancreatic duct of 4 mm in head and neck, mild central intrahepatic biliary dilatation, with normal extrahepatic common duct. Also noted numerous diverticula in sigmoid colon, thickening sigmoid wall, with adjacent mild inflammatory changes. Abdominal ultrasound showed small amount gallbladder sludge without visible stone, normal common duct for age measuring 7.7 mm, no definite choledocholithiasis, mildly dilated pancreatic duct consistent with CT appearance. Discharge Providers Date of admission: 05/22/19 15:46 Discharge Date: 05/23/19 Primary care physician: Socorro Little MD Discharge provider: Daniel Reinoso MD Summary Discharge Diagnosis: 1. Acute pancreatitis 2. Possible common bile duct stricture or neoplasm 3. Recurrent abdominal pain 4. Acute kidney injury, resolved 5. Situational or vasovagal syncope 6. Hypertension 7. Memory loss Procedures: 1. Abdominal ultrasound:FINDINGS: The gallbladder is distended, contains a small amount of sludge layering dependently, but no stone. It has a normal wall thickness at less than 1 mm. The visible portions of the common bile duct measures 7.7 mm, normal for patient's age. Pancreatic duct is mildly dilated measuring up to 4 mm. pancreas has an otherwise normal sonographic appearance. IMPRESSION: 1. There is a small amount of gallbladder sludge layering dependently but no visible stone. 2. Common duct within normal limits for patient's age. No definite choledocholithiasis. 3. Mildly dilated pancreatic duct consistent with CT appearance. If there is continued concern for distal common duct obstruction, MRCP imaging is recommended. 2. CT abdomen and pelvis with contrast:FINDINGS: Image quality: Excellent. ABDOMEN: Lung bases: Lung bases are clear. Heart size is at the upper limits of normal. Mild distal esophageal wall edema and small epiphrenic diverticulum/hiatal hernia. Solid organs: Liver is normal in size and enhancement. Gallbladder is distended but appears otherwise normal. Pancreas enhances normally. The pancreatic duct is moderately dilated measuring 4 mm in the head and neck. There is mild central intrahepatic biliary dilatation. The extrahepatic common duct is normal caliber for patient's age. Spleen is normal in size and enhancement. The there is a small hypodense nodule near the hilum measuring about 1.1 cm one. No adrenal nodules. Kidneys demonstrate normal size and enhancement, without hydronephrosis. Peritoneum and bowel: There is decompression, numerous diverticula, and moderate wall thickening involving the sigmoid colon with mild adjacent fat stranding. The entire colon demonstrates mild wall edema and decompression. There are no other focal pericolonic inflammatory changes. Small bowel loops are fairly decompressed diffusely. A normal appendix is identified. Gastric mucosa is mildly hyperemic. No significant perigastric inflammation. No free fluid or air. Nodes and vessels: No retroperitoneal or mesenteric adenopathy by size criteria. Aorta and inferior vena cava are normal in size. Moderate aortic calcification. Miscellaneous: Tiny umbilical hernia.. PELVIS: Genitourinary: The urinary bladder is partially decompressed. The uterus and ovaries are surgically absent. No Miscellaneous: No inguinal hernias or adenopathy. Bones: No suspicious bony lesions. No vertebral body compression fractures. IMPRESSION: 1. Findings of probable acute on chronic diverticulitis involving the sigmoid colon. 2. Diffuse colonic spasm with mild wall edema suggesting either reactive colitis or potentially infectious or inflammatory colitis involving much of the rest of the colon. 3. Mild pancreatic or biliary ductal dilatation including gallbladder dilatation. Correlate clinically and with LFTs. No visible mechanical obstruction. 4. Mild distal esophageal edema and upper phrenic diverticulum, probably accentuated by history of vomiting. No evidence of small bowel obstruction. 3. MRCP:FINDINGS: Image quality: Excellent. Pancreas and biliary system: Intrahepatic biliary ducts are mildly prominent. The extrahepatic common duct measures about 8 mm, normal for the patient's age. A central hypointensity in the common duct is consistent with flow artifact. No convincing filling defects. There is abrupt tapering of the common duct at the ampulla. The gallbladder is distended but without stones or visible sludge. The pancreatic duct measures between 3.5 and 4 mm, demonstrates classic anatomy, and is smooth. No visible sidebranch dilatation or filling defects the pancreatic duct. The pancreatic gland morphology demonstrates a normal contour and signal. No peripancreatic edema or fluid. Other solid organs: Liver is normal in size. Very minor signal drop in the hepatic parenchyma on out of phase T1 imaging indicates very mild amount of hepatic steatosis. Spleen is normal in size. 1.2 cm mildly heterogeneous T2 hyperintense, T1 isointense lesion in the splenic hilum is again noted, most likely hemangioma or lymphangioma. No adrenal nodules. Both kidneys are normal in size, without hydronephrosis. Nodes and vessels: No retroperitoneal or mesenteric adenopathy by size criteria. Aorta and inferior vena cava are normal in size. Bowel and peritoneum: Unenhanced bowel loops are normal in caliber. No free fluid. Lung bases: No basal pleural effusions. Heart size is normal. Bones and soft tissues: No ventral hernias. Bone marrow is of normal overall signal. IMPRESSION: 1. No convincing filling defect in the distal common duct or pancreatic duct. Abrupt tapering of common duct may be secondary to a small stricture, less likely a ampullary neoplasm. Based on patient's clinical situation and LFTs, patient may benefit from sphincterotomy plus or minus brushings. Clinical correlation recommended. 2. No MR evidence of peripancreatic edema or fluid collections to indicate an acute pancreatitis. However low grade pancreatitis by labs may be occult on imaging. Mild pancreatic ductal dilatation may be secondary to a prior episode of pancreatitis. 3. Incidental note made of minor hepatic steatosis and 1.2 cm splenic hilum lesion most likely a benign hemangioma. Hospital Course: Patient admitted to inpatient service due to acute pancreatitis and her symptoms improved more rapidly than expected and she was able to discharge the following day. Also her blood work improved with bilirubin coming down from 1.9 to 1.3, AST 115-62, ALT 83-64 and creatinine 1.3-0.9. She has memory problems and is not the best historian. She was brought to emergency department due to episode of syncope while on the toilet but she mentioned episode of diarrhea, vomiting and abdominal pain. Labs showed elevated bilirubin and LFTs and lipase above 9000 prompting admission for acute pancreatitis. She was treated with IV fluids and bowel rest and this morning is not having any pain or other GI symptoms while tolerating regular diet. She had radiology workup with abdominal ultrasound, CT and MRCP. Her provided more helpful history that patient has complained of intermittent abdominal discomfort since January of this year which had not been evaluated prior to this admission. There were no obvious gallstones on ultrasound, CT or MRCP. Gallbladder appeared mildly dilated on ultrasound and CT but she has no abdominal tenderness, fever or elevated WBC suggestive of acute cholecystitis. There was small amount of sludge in the gallbladder noted on ultrasound only. There was appearance of possible mild pancreatic duct dilatation on CT and ultrasound. However, MRCP did not show pancreatic duct abnormality or any other abnormality in the pancreas. MRCP did show appearance of abrupt tapering of common duct at the ampulla suggestive of a stricture or possible intraductal neoplasm. Patient's symptoms of intermittent abdominal pain for the past several months may be explained by a common bile duct stricture or neoplasm. Patient may benefit from outpatient referral for a ERCP. This CT was also read as showing diverticulitis although clinically patient did not appear to have any exam findings consistent with diverticulitis. In regards to syncopal episode, this appeared a vasovagal reaction while sitting on toilet and having diarrhea. She had no episodes of syncope in hospital and cardiac enzymes and telemetry were normal. Patient was noted to have difficulties with recall and endorsed some memory problems which have not been formally evaluated. She was oriented to person, time and place but definitely some issues with recalling recent events. Patient and are advised to have her memory further evaluated in office setting. Patient has appointment on June 13 to establish care with Dr. Little at [facility]. However, she needs to be seen sooner for hospital follow-up and we were able to schedule her with Dr. Neela Wilson on MondayMay 27 and patient can then decide on subsequent provider follow-up. Status at Discharge Cognitive/behavioral status at discharge: at baseline, oriented Functional status at discharge: independent ambulation Overall status at discharge: patient is back to baseline Time Spent with Patient Greater than 30 minutes Exam Vital Signs (past 8 hours): - 07/11/19 05:15 05/23/19 08:00 Temperature 97.9 F 98.0 F Pulse Rate 66 63 Respiratory Rate 18 16 Blood Pressure 108/64 112/59 L Pulse Oximetry 94 96 Oxygen Delivery Method Room Air Objective Labs Result Diagrams: 05/23/19 05:05 05/23/19 05:05 Labs: Laboratory Results - last 24 hr 05/22/19 05/22/19 05/22/19 11:11 11:55 13:40 WBC RBC Hgb Hct MCV MCH MCHC RDW Plt Count Neut % (Auto) Lymph % (Auto) [place] % (Auto) Eos % (Auto) Baso % (Auto) Neut # (Auto) Lymph # (Auto) [place] # (Auto) Eos # (Auto) Baso # (Auto) Sodium Potassium Chloride Carbon Dioxide BUN Creatinine Estimated GFR BUN/Creatinine Ratio Glucose Lactate 1.2 Calcium Total Bilirubin AST ALT Alkaline Phosphatase Troponin I < 0.012 Total Protein Albumin Globulin Albumin/Globulin Ratio Triglycerides Cholesterol LDL Cholesterol, Calc HDL Cholesterol Lipase 9563 H Urine RBC None seen Urine WBC 0-1/hpf Ur Squamous Epith Cells None seen Urine Bacteria Few (2-10) H Ur Culture Indicated? Specimen cultured 05/23/19 05/23/19 05/23/19 05:05 05:05 07:10 WBC 6.8 RBC 3.69 L Hgb 12.7 Hct 35.3 L MCV 95.8 MCH 34.4 H MCHC 35.9 RDW 12.7 Plt Count 180 Neut % (Auto) 76.2 H Lymph % (Auto) 12.0 L [place] % (Auto) 10.2 Eos % (Auto) 1.0 L Baso % (Auto) 0.6 Neut # (Auto) 5200 Lymph # (Auto) 800 L [place] # (Auto) 700 Eos # (Auto) 100 Baso # (Auto) 0 Sodium 140 Potassium 3.1 L Chloride 107 Carbon Dioxide 25 BUN 9 Creatinine 0.90 Estimated GFR > 60.0 BUN/Creatinine Ratio 10.0 Glucose 98 Lactate Calcium 7.9 L Total Bilirubin 1.3 AST 62 H ALT 64 H Alkaline Phosphatase 47 Troponin I Total Protein 5.6 L Albumin 3.2 L Globulin 2.4 Albumin/Globulin Ratio 1.3 Triglycerides 88 Cholesterol 127 L LDL Cholesterol, Calc 77 HDL Cholesterol 32 L Lipase Urine RBC Urine WBC Ur Squamous Epith Cells Urine Bacteria Ur Culture Indicated? 05/23/19 07:10 WBC RBC Hgb Hct MCV MCH MCHC RDW Plt Count Neut % (Auto) Lymph % (Auto) [place] % (Auto) Eos % (Auto) Baso % (Auto) Neut # (Auto) Lymph # (Auto) [place] # (Auto) Eos # (Auto) Baso # (Auto) Sodium Potassium Chloride Carbon Dioxide BUN Creatinine Estimated GFR BUN/Creatinine Ratio Glucose Lactate Calcium Total Bilirubin AST ALT Alkaline Phosphatase Troponin I Total Protein Albumin Globulin Albumin/Globulin Ratio Triglycerides Cholesterol LDL Cholesterol, Calc HDL Cholesterol Lipase 1346 H D Urine RBC Urine WBC Ur Squamous Epith Cells Urine Bacteria Ur Culture Indicated? Discharge Plan Discharge Plan Patient Disposition: Home Discharge Med Rec/Prescriptions Prescriptions: Continued amlodipine 5 mg tablet 5 mg PO DAILY RF: 0 Follow up/Referrals: Neela Wilson MD [Physician] - 05/27/19 ([facility] will call you to sched the appointment) Provider Discharge Instructions Diet: Diet as Tolerated Visit Report/Discharge Packet Instructions: DI for Pancreatitis Discharge Data Primary Care Provider: Socorro Little Attending Provider: Daniel Reinoso Admit Date/Time: 05/22/19 15:46 Quality VTE Deep Vein Thrombosis/Pulmonary Embolism Present on Admission: No
--- NOTE | 2019-05-23 12:01 | PC.NURSE ---
Patient discharged to home with . Plans to follow up with Dr. Wilson next week. Denies questions or concerns. IV dc'd intact. Escorted out via wheelchair with all belongings.
== END 2019-05-23 12:00 | disposition home or self-care (01) | DRG 438 ==
LOC: ED 15:44 → AC 15:47
PROVIDERS: Nurse Practitioner Adult Health; Admitting Provider Internal Medicine; Emergency Provider Emergency Medicine; PCP Internal Medicine; Visit Provider Internal Medicine
DX: K85.90 Acute pancreatitis without necrosis or infection, unspecified (principal); K83.1 Obstruction of bile duct; N17.9 Acute kidney failure, unspecified; D49.0 Neoplasm of unspecified behavior of digestive system; I10 Essential (primary) hypertension; Z87.891 Personal history of nicotine dependence; R55 Syncope and collapse
CPT/HCPCS: 36415; 36591; 74177; 74181; 76705; 80053; 80061; 81003; 81015; 82550; 83605; 83690; 84484; 85025; 85610; 85730; 87077; 87086; 87186; 93005; 96361; 96374; 99283; 99285; J1650; J2405; J3480; Q9967

== ENCOUNTER → 2019-12-06 11:24 | Outpatient (CLI) | payer OTHER, SELFPAY ==
[2019-05-22 16:07] VITALS: BMI 30.7
--- NOTE | 2019-12-06 | DI.RAD.S_ITS ---
PROCEDURE: XR ANKLE LT MIN 3V INDICATIONS: pain of left lower leg TECHNIQUE: 3 views of the ankle were acquired. COMPARISON: None. FINDINGS: Bones: No fractures or dislocations. Ankle mortise is normally aligned. No suspicious bony lesions. Sinus tarsi implant and orthopedic staple incidentally noted. Hardware appears intact without evidence of loosening. Diffuse hindfoot degenerative sclerosis Soft tissues: No tibiotalar joint effusion. Achilles tendon appears normal. IMPRESSION: Postsurgical changes as above No fracture Dictated by: Vikram Truong M.D. on 12/06/2019 at 17:14 Approved by: Vikram Truong M.D. on 12/06/2019 at 17:17
--- NOTE | 2019-12-06 | DI.US.S_ITS ---
PROCEDURE: US PERIPH VENOUS LOW EXTREM LT INDICATIONS: LEFT LEG PAIN AND SWELLING TECHNIQUE: Real-time imaging, as well as color and pulse Doppler interrogation, were performed of the lower extremity deep veins from the inguinal ligament to the popliteal fossa. COMPARISON: None. FINDINGS: The common femoral, femoral and popliteal veins are normally compressible, and free of intraluminal thrombus. Color and pulse Doppler demonstrate normal phasic intraluminal flow. There is normal augmentation response to distal compression maneuver. IMPRESSION: Negative for deep venous thrombosis. Note: Concordant preliminary findings given by the customer training specialist upon the completion of the examination to Bebe Kraft at 11:42 AM [place] time on December 06, 2019. Dictated by: Nagi Lord M.D. on 12/06/2019 at 11:02 Approved by: Nagi Lord M.D. on 12/06/2019 at 11:04
--- NOTE | 2019-12-06 | DI.RAD.S_ITS ---
PROCEDURE: XR TIBIA FIBULA RT 2V INDICATIONS: Left lower leg pain TECHNIQUE: 2 views of the tibia and fibula were acquired. COMPARISON: None. FINDINGS: Bones: No fractures or dislocations. No suspicious bony lesions. Surgical hardware projecting in the hindfoot. Soft tissues: No suspicious soft tissue calcifications or masses. IMPRESSION: No fracture Dictated by: Vikram Truong M.D. on 12/06/2019 at 17:14 Approved by: Vikram Truong M.D. on 12/06/2019 at 17:14
== END ==
PROVIDERS: PCP Internal Medicine; Visit Provider Internal Medicine
DX: M79.662 Pain in left lower leg (principal); M79.89 Other specified soft tissue disorders
CPT/HCPCS: 73590; 73610; 93971

== ENCOUNTER 2020-06-10 11:49 | Emergency (ER) | payer OTHER, SELFPAY ==
[2019-05-22 16:07] VITALS: BMI 30.7
[2020-06-10 12:21] VITALS: BP 184/86; PULSE 80; RESP 16; TEMP 36.5; O2SAT 97
[2020-06-10 13:14] LABS: Add Manual Diff / Slide Review NO; Basophils Absolute Auto 0 /uL (0-100); Basophils Percent Auto 0.5 % (0-2); Eosinophils Absolute Auto 100 /uL (0-450); Eosinophils Percent Auto 0.6 % (2-4); Hemoglobin 15.4 g/dL (12.0-16.0); Lymphocytes Absolute Auto 900 /uL (1100-4500); Lymphocytes Percent Auto 9.4 % (25-40); Mean Corpuscular HGB Conc 35.8 % (30-36); Mean Corpuscular Hemoglobin 34.1 PG (26-34); Mean Corpuscular Volume 95.3 fL (80-100); Monocytes Absolute Auto 800 /uL (0-900); Monocytes Percent Auto 8.6 % (3-14); Neutrophils Absolute Auto 7400 /uL (1500-7000); Neutrophils Percent Auto 80.9 % (50-75); Platelet Count 199 X10^3/uL (150-400); Red Blood Cell Count 4.52 X10^6/uL (4.0-5.2); Red Cell Distribution Width 12.7 % (11.6-14.8); White Blood Cell Count 9.2 X10^3/uL (4.5-11.0)
[2020-06-10 13:20] LABS: Prothrombin Time 11.7 SECONDS (10.1-12.7)
[2020-06-10 13:23] LABS: PTT Partial Thromboplastin Tim 32 SECONDS (26.4-36.2)
[2020-06-10 13:24] LABS: Alanine Aminotransferase 30 IU/L (<35); Albumin 4.5 g/dL (3.5-5.0); Albumin Globulin Ratio 1.7 (1.0-2.8); Alkaline Phosphatase 68 U/L (38-126); Aspartate Aminotransferase 34 IU/L (14-36); BUN Creatinine Ratio 13.3 (6-22); Bilirubin Total 1.2 mg/dL (0.2-1.3); Blood Urea Nitrogen 13 mg/dL (7-17); Calcium 9.1 mg/dL (8.4-10.2); Carbon Dioxide 25 mmol/L (22-32); Chloride 104 mmol/L (98-107); Estimated Glomerular Filt Rate 54.5 mL/min (>60); Globulin 2.6 g/dL (1.7-4.1); Glucose 111 mg/dL (80-110); HEMOLYSIS < 15 (0-50); Lipase 238 U/L (23-300); Potassium 3.3 mmol/L (3.4-5.1); Sodium 138 mmol/L (137-145); Total Protein 7.1 g/dL (6.3-8.2)
--- NOTE | 2020-06-10 13:46 | ED.NAVMDI ---
HPI - Nausea/Vomiting/Diarrhea <Mady Galvan PA-C - Last Filed: 06/10/20 21:59> General Chief complaint: Nausea/Vomiting/Diarrhea Stated complaint: vomiting and diarrhea Time Seen by Provider: 06/10/20 13:45 Source: patient and family Mode of arrival: Ambulatory Limitations: no limitations History of Present Illness HPI Narrative: This is an 80-year-old woman with a history of pancreatitis presents to the emergency department with her with concerns because she had 2 or 3 episodes of vomiting this morning as well as 2 episodes of diarrhea and she has some nausea associated with this. She had a couple bites of her breakfast cereal but then became sick. She has otherwise been in her normal state of health, her says pretty much as good as things get. She does have some chronic memory issues. Her symptoms have resolved since this morning, she has not been feeling nauseous and has not thrown up again or had another episode of diarrhea. They did call her PCP this morning, however he was not able to get her in today and recommend that they come to the emergency department for further evaluation. She denies any fever, chills, abdominal pain, back pain, flank pain, chest pain, body aches, cough, shortness of breath or any other symptoms. MD complaint: nausea, vomiting and diarrhea Onset (ago): hour(s) (7) Description of Vomiting: watery Description of Diarrhea: other (loose) Associated Abdominal Pain: No Pain Consistency: now resolved Associated symptoms: denies other symptoms Related Data Home Medications Medication Instructions Recorded Confirmed amlodipine 5 mg PO DAILY 05/22/19 05/22/19 Previous Rx's Medication Instructions Recorded ondansetron HCl [Zofran] 4 mg PO Q8H #20 tab 06/10/20 Allergies Allergy/AdvReac Type Severity Reaction Status Date / Time No Known Drug Allergies Allergy Verified 05/22/19 11:10 Review of Systems <Mady Galvan PA-C - Last Filed: 06/10/20 21:59> Review of Systems Narrative: GENERAL: Denies chills, fatigue, malaise, fever, sweats. HEENT: Denies sinus pain, ear pain, sore throat, difficulty swallowing, dizziness. RESPIRATORY: Denies dyspnea, cough, wheezing, hemoptysis, sputum. CARDIOVASCULAR: Denies chest pain, palpitations, orthopnea, edema, GASTROINTESTINAL: Positive for nausea, vomiting, diarrhea this morning that resolved negative for abdominal pain, constipation, melena. : Denies dysuria, frequency, incontinence, hematuria, urinary retention. MUSCULOSKELETAL: denies weakness, joint pain, or bony pain SKIN: Denies rash, skin lesions, or other NEUROLOGIC: Denies weakness, headache, numbness, change in speech, confusion, seizures, incoordination. PSYCHIATRIC: No concerning psychosocial issues, reports she has chronic memory issues. 12 point review of systems is negative except for those stated above Patient History <Mady Galvan PA-C - Last Filed: 06/10/20 21:59> Medical History Dyslipidemia (Chronic) Hypertension (Chronic) Surgical History Status post breast reduction Status post hysterectomy Family History Brother Diabetes mellitus Hypertension Father Heart disease Hypertension Stroke Sister Heart disease Hypertension High cholesterol Stroke Sister High cholesterol Social History marital status: details: 10 years household members: spouse Smoking Status: Former smoker alcohol intake: current substance use type: does not use Smoking Status: Former smoker alcohol intake frequency: a few times a month Substance Use Type: does not use Exam <Mady Galvan PA-C - Last Filed: 06/10/20 21:59> Initial Vital Signs Initial Vital Signs: Vital Signs Temperature 97.7 F 06/10/20 12:21 Pulse Rate 80 06/10/20 12:21 Respiratory Rate 16 06/10/20 12:21 Blood Pressure 184/86 H 06/10/20 12:21 Pulse Oximetry 97 06/10/20 12:21 <Beau Chen MD - Last Filed: 06/11/20 07:38> Initial Vital Signs Initial Vital Signs: Vital Signs Temperature 97.7 F 06/10/20 12:21 Pulse Rate 80 06/10/20 12:21 Respiratory Rate 16 06/10/20 12:21 Blood Pressure 184/86 H 06/10/20 12:21 Pulse Oximetry 97 06/10/20 12:21 Scores <Mady Galvan PA-C - Last Filed: 06/10/20 21:59> GCS Katelynn coma scale eye opening: Spontaneous [place] coma scale verbal response: Orientated Katelynn coma scale motor response: Obey commands Katelynn coma scale total score: 15 Course <Mady Galvan PA-C - Last Filed: 06/10/20 21:59> Orders Ordered: Discontinued Medications Sodium Chloride (Normal Saline 0.9%) 1,000 mls @ 500 mls/hr IV BOLUS PRN PRN Reason: Fluid replacement Ondansetron HCl (Zofran) 4 mg PO NOW ONE Stop: 06/10/20 13:49 Last Admin: 06/10/20 14:45 Dose: Not Given Documented by: MIC Ondansetron HCl (Zofran Odt) 4 mg SL NOW ONE Stop: 06/10/20 14:36 Last Admin: 06/10/20 14:44 Dose: 4 mg Documented by: MIC Vital Signs Vital signs: Vital Signs - 8 hr 06/10/20 15:03 06/10/20 15:04 06/10/20 15:30 Pulse Rate 76 74 75 Blood Pressure 160/77 H 146/78 H Pulse Oximetry 98 98 97 06/10/20 16:00 Pulse Rate 72 Blood Pressure 159/74 H Pulse Oximetry 97 <Beau Chen MD - Last Filed: 06/11/20 07:38> Orders Ordered: Discontinued Medications Sodium Chloride (Normal Saline 0.9%) 1,000 mls @ 500 mls/hr IV BOLUS PRN PRN Reason: Fluid replacement Ondansetron HCl (Zofran) 4 mg PO NOW ONE Stop: 06/10/20 13:49 Last Admin: 06/10/20 14:45 Dose: Not Given Documented by: MIC Ondansetron HCl (Zofran Odt) 4 mg SL NOW ONE Stop: 06/10/20 14:36 Last Admin: 06/10/20 14:44 Dose: 4 mg Documented by: MIC Vital Signs Vital signs: Vital Signs - 8 hr 06/10/20 15:03 06/10/20 15:04 06/10/20 15:30 Pulse Rate 76 74 75 Blood Pressure 160/77 H 146/78 H Pulse Oximetry 98 98 97 06/10/20 16:00 Pulse Rate 72 Blood Pressure 159/74 H Pulse Oximetry 97 MDM - Nausea/Vomiting/Diarrhea <Mady Galvan PA-C - Last Filed: 06/10/20 21:59> Differential Diagnosis Differential diagnosis: Likely food poisoning, gastroenteritis, dehydration and other (Appendicitis, diverticulitis, pancreatitis) Medical Records Attestation: I reviewed the patient's medical records. Lab Data Attestation: I reviewed the patient's lab results. Result diagrams: 06/10/20 13:05 06/10/20 13:05 Labs: Lab Results 06/10/20 06/10/20 06/10/20 Range/Units 13:05 13:05 13:05 WBC 9.2 (4.5-11.0) X10^3/uL RBC 4.52 (4.0-5.2) X10^6/uL Hgb 15.4 (12.0-16.0) g/dL Hct 43.0 (36-46) % MCV 95.3 (80-100) fL MCH 34.1 H (26-34) PG MCHC 35.8 (30-36) % RDW 12.7 (11.6-14.8) % Plt Count 199 (150-400) X10^3/uL Neut % (Auto) 80.9 H (50-75) % Lymph % (Auto) 9.4 L (25-40) % Daniels % (Auto) 8.6 (3-14) % Eos % (Auto) 0.6 L (2-4) % Baso % (Auto) 0.5 (0-2) % Neut # (Auto) 7400 H (6882-4061) /uL Lymph # (Auto) 900 L (6000-6412) /uL Daniels # (Auto) 800 (0-900) /uL Eos # (Auto) 100 (0-450) /uL Baso # (Auto) 0 (0-100) /uL PT 11.7 (10.1-12.7) SECONDS INR 1.0 (0.9-1.3) APTT 32 D (26.4-36.2) SECONDS Sodium 138 (137-145) mmol/L Potassium 3.3 L (3.4-5.1) mmol/L Chloride 104 (98-107) mmol/L Carbon Dioxide 25 (22-32) mmol/L BUN 13 (7-17) mg/dL Creatinine 0.98 (0.52-1.04) mg/dL Estimated GFR 54.5 L (>60) mL/min BUN/Creatinine Ratio 13.3 (6-22) Glucose 111 H (80-110) mg/dL Calcium 9.1 (8.4-10.2) mg/dL Total Bilirubin 1.2 (0.2-1.3) mg/dL AST 34 (14-36) IU/L ALT 30 (<35) IU/L Alkaline Phosphatase 68 (38-126) U/L Total Protein 7.1 (6.3-8.2) g/dL Albumin 4.5 (3.5-5.0) g/dL Globulin 2.6 (1.7-4.1) g/dL Albumin/Globulin Ratio 1.7 (1.0-2.8) Lipase 238 (23-300) U/L Urine RBC (0-5/HPF) Urine WBC (0-5/HPF) Ur Squamous Epith Cells (0-5/HPF) Urine Bacteria (None) Ur Culture Indicated? 06/10/20 Range/Units 14:42 WBC (4.5-11.0) X10^3/uL RBC (4.0-5.2) X10^6/uL Hgb (12.0-16.0) g/dL Hct (36-46) % MCV (80-100) fL MCH (26-34) PG MCHC (30-36) % RDW (11.6-14.8) % Plt Count (150-400) X10^3/uL Neut % (Auto) (50-75) % Lymph % (Auto) (25-40) % Daniels % (Auto) (3-14) % Eos % (Auto) (2-4) % Baso % (Auto) (0-2) % Neut # (Auto) (2084-1620) /uL Lymph # (Auto) (4950-5284) /uL Daniels # (Auto) (0-900) /uL Eos # (Auto) (0-450) /uL Baso # (Auto) (0-100) /uL PT (10.1-12.7) SECONDS INR (0.9-1.3) APTT (26.4-36.2) SECONDS Sodium (137-145) mmol/L Potassium (3.4-5.1) mmol/L Chloride (98-107) mmol/L Carbon Dioxide (22-32) mmol/L BUN (7-17) mg/dL Creatinine (0.52-1.04) mg/dL Estimated GFR (>60) mL/min BUN/Creatinine Ratio (6-22) Glucose (80-110) mg/dL Calcium (8.4-10.2) mg/dL Total Bilirubin (0.2-1.3) mg/dL AST (14-36) IU/L ALT (<35) IU/L Alkaline Phosphatase (38-126) U/L Total Protein (6.3-8.2) g/dL Albumin (3.5-5.0) g/dL Globulin (1.7-4.1) g/dL Albumin/Globulin Ratio (1.0-2.8) Lipase (23-300) U/L Urine RBC 1-5/hpf (0-5/HPF) Urine WBC 5-10/hpf H (0-5/HPF) Ur Squamous Epith Cells 0-1 /hpf (0-5/HPF) Urine Bacteria None seen (None) Ur Culture Indicated? Specimen cultured Urine Dip Bedside Urine Glucose Negative Bedside Urine Bilirubin - Negative Bedside Urine Ketone - Negative Urine Specific [place] 1.020 Bedside Urine Occult Blood +/- Bedside Urine pH 6.0 Bedside Urine Protein +/- 15 Bedside Urine Urobilinogen - Negative Bedside Urine Nitrite - Negative Bedside Urine Leukocytes ++ 125 Esterase MDM Narrative Medical decision making narrative: This is a well-appearing 80-year-old with a history of memory problems and pancreatitis who presents to the emergency department with her complaining of her having multiple episodes of vomiting a few episodes of diarrhea and she was having some nausea this morning as well, all of her symptoms have resolved, she was sent by her PCP as they could not see her today. Her labs were unremarkable, her exam was also unremarkable, she had no abdominal pain and resolution of her symptoms with normal labs so imaging was not obtained today. She did have positive leukocyte esterase in her urine but with no symptoms of dysuria, no abdomina/pelvicl pain, no other urinary abnormalities, not treated for UTI at this time. She was provided with a prescription for Zofran and advised to follow-up with her PCP, discussed with patient and her emergency return precautions and close monitoring for continuing or worsening symptoms. All questions were answered. <Beau Chen MD - Last Filed: 06/11/20 07:38> Lab Data Labs: Lab Results 06/10/20 06/10/20 06/10/20 Range/Units 13:05 13:05 13:05 WBC 9.2 (4.5-11.0) X10^3/uL RBC 4.52 (4.0-5.2) X10^6/uL Hgb 15.4 (12.0-16.0) g/dL Hct 43.0 (36-46) % MCV 95.3 (80-100) fL MCH 34.1 H (26-34) PG MCHC 35.8 (30-36) % RDW 12.7 (11.6-14.8) % Plt Count 199 (150-400) X10^3/uL Neut % (Auto) 80.9 H (50-75) % Lymph % (Auto) 9.4 L (25-40) % Daniels % (Auto) 8.6 (3-14) % Eos % (Auto) 0.6 L (2-4) % Baso % (Auto) 0.5 (0-2) % Neut # (Auto) 7400 H (9614-5651) /uL Lymph # (Auto) 900 L (2437-7651) /uL Daniels # (Auto) 800 (0-900) /uL Eos # (Auto) 100 (0-450) /uL Baso # (Auto) 0 (0-100) /uL PT 11.7 (10.1-12.7) SECONDS INR 1.0 (0.9-1.3) APTT 32 D (26.4-36.2) SECONDS Sodium 138 (137-145) mmol/L Potassium 3.3 L (3.4-5.1) mmol/L Chloride 104 (98-107) mmol/L Carbon Dioxide 25 (22-32) mmol/L BUN 13 (7-17) mg/dL Creatinine 0.98 (0.52-1.04) mg/dL Estimated GFR 54.5 L (>60) mL/min BUN/Creatinine Ratio 13.3 (6-22) Glucose 111 H (80-110) mg/dL Calcium 9.1 (8.4-10.2) mg/dL Total Bilirubin 1.2 (0.2-1.3) mg/dL AST 34 (14-36) IU/L ALT 30 (<35) IU/L Alkaline Phosphatase 68 (38-126) U/L Total Protein 7.1 (6.3-8.2) g/dL Albumin 4.5 (3.5-5.0) g/dL Globulin 2.6 (1.7-4.1) g/dL Albumin/Globulin Ratio 1.7 (1.0-2.8) Lipase 238 (23-300) U/L Urine RBC (0-5/HPF) Urine WBC (0-5/HPF) Ur Squamous Epith Cells (0-5/HPF) Urine Bacteria (None) Ur Culture Indicated? 06/10/20 Range/Units 14:42 WBC (4.5-11.0) X10^3/uL RBC (4.0-5.2) X10^6/uL Hgb (12.0-16.0) g/dL Hct (36-46) % MCV (80-100) fL MCH (26-34) PG MCHC (30-36) % RDW (11.6-14.8) % Plt Count (150-400) X10^3/uL Neut % (Auto) (50-75) % Lymph % (Auto) (25-40) % Daniels % (Auto) (3-14) % Eos % (Auto) (2-4) % Baso % (Auto) (0-2) % Neut # (Auto) (5276-0089) /uL Lymph # (Auto) (3368-9528) /uL Daniels # (Auto) (0-900) /uL Eos # (Auto) (0-450) /uL Baso # (Auto) (0-100) /uL PT (10.1-12.7) SECONDS INR (0.9-1.3) APTT (26.4-36.2) SECONDS Sodium (137-145) mmol/L Potassium (3.4-5.1) mmol/L Chloride (98-107) mmol/L Carbon Dioxide (22-32) mmol/L BUN (7-17) mg/dL Creatinine (0.52-1.04) mg/dL Estimated GFR (>60) mL/min BUN/Creatinine Ratio (6-22) Glucose (80-110) mg/dL Calcium (8.4-10.2) mg/dL Total Bilirubin (0.2-1.3) mg/dL AST (14-36) IU/L ALT (<35) IU/L Alkaline Phosphatase (38-126) U/L Total Protein (6.3-8.2) g/dL Albumin (3.5-5.0) g/dL Globulin (1.7-4.1) g/dL Albumin/Globulin Ratio (1.0-2.8) Lipase (23-300) U/L Urine RBC 1-5/hpf (0-5/HPF) Urine WBC 5-10/hpf H (0-5/HPF) Ur Squamous Epith Cells 0-1 /hpf (0-5/HPF) Urine Bacteria None seen (None) Ur Culture Indicated? Specimen cultured Urine Dip Bedside Urine Glucose Negative Bedside Urine Bilirubin - Negative Bedside Urine Ketone - Negative Urine Specific [place] 1.020 Bedside Urine Occult Blood +/- Bedside Urine pH 6.0 Bedside Urine Protein +/- 15 Bedside Urine Urobilinogen - Negative Bedside Urine Nitrite - Negative Bedside Urine Leukocytes ++ 125 Esterase Discharge Plan Departure Patient Disposition: Home Clinical Impression: Nausea & vomiting Qualifiers: Vomiting type: unspecified Vomiting Intractability: non-intractable Qualified Code(s): R11.2 - Nausea with vomiting, unspecified Diarrhea Qualifiers: Diarrhea type: unspecified type Qualified Code(s): R19.7 - Diarrhea, unspecified Discharge Date/Time: 06/10/20 16:17 Instructions: DI for Vomiting -- Adult, Nausea and Vomiting-Adult Activity Restrictions/Additional Instructions: Thank you for allowing us to be part of her care in the emergency department today. There is no evidence of an emergent or life threatening illness at this time, but follow up with your doctor in 1-2 days is recommended nonetheless to continue to rule out serious underlying causes of your symptoms. Please call the office for an appointment. Please return to the Emergency Department for any worsening or persistent symptoms. Please take medications as directed. I have provided a prescription for Zofran, antinausea medicine. Please monitor carefully for any new or worsening symptoms including abdominal pain, fever, chills, nausea, vomiting or any other symptoms of concern to you, please seek medical care if you have new or worsening symptoms.. Please follow-up with your primary care doctor in the next 1-3 days. Prescriptions: New ondansetron HCl [Zofran] 4 mg tablet 4 mg PO Q8H Qty: 20 RF: 0 No Action amlodipine 5 mg tablet 5 mg PO DAILY RF: 0 Referrals: Vicente Carmona MD [Physician] - Socorro Little MD [Primary Care Provider] - <Beau Chen MD - Last Filed: 06/11/20 07:38> Cosign ED Attending Cosignature Attestation: I was immediately available in the department for consultation. This documentation has been reviewed and I agree with assessment and plan. Supervised by Beau Chen MD
[2020-06-10] MEDS: ONDANSETRON 4 MG ODT SL (14:44)
[2020-06-10 14:54] LABS: Bacteria Urine None Seen
[2020-06-10 15:03] VITALS: PULSE 76; O2SAT 98
[2020-06-10 15:04] VITALS: BP 160/77; PULSE 74; O2SAT 98
[2020-06-10 15:04] LABS: Culture Indicated Urine Specimen Cultured; RBC Urine 1-5/HPF (0-5/HPF); Squamous Epithelial Cell Urine 0-1 /HPF (0-5/HPF); WBC Urine 5-10/HPF (0-5/HPF)
[2020-06-10 15:30] VITALS: BP 146/78; PULSE 75; O2SAT 97
[2020-06-10 16:00] VITALS: BP 159/74; PULSE 72; O2SAT 97
== END 2020-06-10 16:17 | disposition home or self-care (01) ==
PROVIDERS: Emergency Medicine; Emergency Provider Student in an Organized Health Care Education/Training Program; PCP Internal Medicine
DX: R11.2 Nausea with vomiting, unspecified (principal); R19.7 Diarrhea, unspecified; R10.9 Unspecified abdominal pain
CPT/HCPCS: 36415; 80053; 81003; 81015; 83690; 85025; 85610; 85730; 87077; 87086; 93005; 99284

== ENCOUNTER → 2020-06-30 09:58 | Outpatient (CLI) | payer OTHER, SELFPAY ==
[2019-05-22 16:07] VITALS: BMI 30.7
[2020-06-30 12:16] LABS: BUN Creatinine Ratio 12.1 (6-22); Blood Urea Nitrogen 13 mg/dL (7-17); Estimated Glomerular Filt Rate 49.2 mL/min (>60)
== END ==
PROVIDERS: PCP Internal Medicine; Referring Provider Internal Medicine; Visit Provider Internal Medicine
DX: R10.30 Lower abdominal pain, unspecified (principal)
CPT/HCPCS: 36415; 82565; 84520

== ENCOUNTER → 2020-07-02 11:38 | Outpatient (CLI) | payer OTHER, SELFPAY ==
[2019-05-22 16:07] VITALS: BMI 30.7
--- NOTE | 2020-07-02 12:59 | DI.CT.S_ITS ---
PROCEDURE: CT ABDOMEN PELVIS W CON INDICATIONS: LOWER ABD PAIN X SEVERAL DAYS TECHNIQUE: After the administration of oral and intravenous contrast, 5 mm thick sections acquired from the diaphragms to the symphysis. 5 mm thick coronal and sagittal reformats were performed. For radiation dose reduction, the following was used: automated exposure control, adjustment of mA and/or kV according to patient size. COMPARISON: [facility], CT, CT ABDOMEN PELVIS W CON, 05/22/2019, 11:54. FINDINGS: Image quality: Excellent. ABDOMEN: Lung bases: Lung bases are clear. Heart size is normal. Hepatic steatosis. Subcentimeter focus of enhancement near the gallbladder fossa is noted and was present on the prior study from 05/22/19 probably flash filling small hemangioma. Gallbladder contracted otherwise unremarkable. . Biliary system is non-dilated. Pancreas enhances normally. Spleen is normal in size and enhancement. No adrenal nodules. Kidneys are normal in size and enhancement, without hydronephrosis. Colonic diverticulosis is seen without evidence of acute complication.Mild long segment mural thickening involving the sigmoid colon which could be related to chronic diverticular disease. No free fluid or air. Normal appendix. Nodes and vessels: No retroperitoneal or mesenteric adenopathy. Aorta and inferior vena cava are normal in caliber. Scattered vascular calcifications seen in the aorta. Miscellaneous: No ventral hernias. PELVIS: Genitourinary: Bladder wall thickness is normal. Miscellaneous: No inguinal hernias or adenopathy. Bones: No vertebral body compression fracture. Spondylytic changes and facet arthropathy. IMPRESSION: Numerous colonic diverticula with long segment low-grade mural thickening of the sigmoid colon, potentially reflecting sequela of chronic diverticulitis. Technically, mild acute on chronic diverticulitis , or potentially mild colitis of infectious or inflammatory etiology, cannot be entirely excluded although no definite focally inflamed diverticulum is seen. And, overall, similar appearance to the prior study from 05/22/19. Normal appendix Elsewhere no acute abnormality Additional chronic and incidental findings as above. Dictated by: Vikram Truong M.D. on 07/02/2020 at 13:51 Approved by: Vikram Truong M.D. on 07/02/2020 at 14:03
== END ==
PROVIDERS: PCP Internal Medicine; Referring Provider Internal Medicine; Visit Provider Internal Medicine
DX: R10.30 Lower abdominal pain, unspecified (principal); K57.30 Diverticulosis of large intestine without perforation or abscess without bleeding
CPT/HCPCS: 74177; Q9967

== ENCOUNTER → 2020-08-31 19:49 | Outpatient (ROUT) | payer OTHER, SELFPAY ==
[2019-05-22 16:07] VITALS: BMI 30.7
[2020-08-31 20:12] LABS: Aspartate Aminotransferase 30 IU/L (14-36); BUN Creatinine Ratio 19.8 (6-22); Blood Urea Nitrogen 18 mg/dL (7-17); Calcium 8.8 mg/dL (8.4-10.2); Carbon Dioxide 31 mmol/L (22-32); Chloride 103 mmol/L (98-107); Cholesterol 184 mg/dL (140-199); Estimated Glomerular Filt Rate 59.3 mL/min (>60); Glucose 88 mg/dL (80-110); HDL Cholesterol 41 mg/dL (40-60); HEMOLYSIS 18 (0-50); LDL Cholesterol Calculated 115 mg/dL (<100); Sodium 139 mmol/L (137-145); Triglycerides 142 mg/dL (35-150)
== END ==
PROVIDERS: PCP Internal Medicine; Visit Provider Internal Medicine
DX: I10 Essential (primary) hypertension (principal); E78.2 Mixed hyperlipidemia
CPT/HCPCS: 80048; 80061; 84450

== ENCOUNTER 2023-11-11 15:30 | Emergency (ER) | payer OTHER, SELFPAY ==
[2019-05-22 16:07] VITALS: BMI 30.7
[2023-11-11 15:45] VITALS: BP 211/96; PULSE 83; RESP 18; TEMP 37.1; O2SAT 95; BMI 25.7
--- NOTE | 2023-11-11 16:19 | ED.EYEPROB ---
HPI - Eye Problem General Chief complaint: Eye Problems Stated complaint: possible fall/ eyes swollen/ bruise forehead Time Seen by Provider: 11/11/23 16:12 Source: patient Mode of arrival: Ambulatory History of Present Illness HPI Narrative: 83-year-old female history of advanced dementia transfer by a family member to the emergency room for evaluation of potential trauma to the left forehead eye area. Patient was seen by a family member approximately a week ago at that time patient appeared normal, today the staff member noticed that there is some swelling to the facial area and recommended to come to the emergency room for evaluation, there is some old scab approximately 3-4 days of injury, no active bleeding at this time, there is some swelling to the left orbital eyelid area with no evidence of pus drainage. Patient is able to open her eyes on command and respond to pain stimuli. According to the family member, patient has declined quite drastically over 1 month, patient transfer from assisted living facility to a residential facility because of this. Patient has normal respiration and blood pressure with systolic more than 200, according to the son-in-law this is ?normal to her?. Patient's own complaint of chest pain no complaint of shortness of breath no nausea no vomiting. Related Data Home Medications Medication Instructions Recorded Confirmed amlodipine 5 mg tablet 5 mg PO DAILY 05/22/19 05/22/19 Previous Rx's Medication Instructions Recorded ondansetron HCl 4 mg tablet 4 mg PO Q8H #20 tabs 06/10/20 (Zofran) cephalexin 500 mg capsule 500 mg PO TID 7 days #21 caps 11/11/23 Allergies Allergy/AdvReac Type Severity Reaction Status Date / Time No Known Drug Allergies Allergy Verified 11/11/23 15:45 Review of Systems Review of Systems Narrative: All system negative except what is dictated in HPI Patient History Medical History (Updated 11/11/23 @ 17:37 by Moses Rangel MD) Dyslipidemia Hypertension Surgical History Status post hysterectomy Status post breast reduction Family History Brother Diabetes mellitus Hypertension Father Heart disease Hypertension Stroke Sister Heart disease Hypertension High cholesterol Stroke Sister High cholesterol Social History marital status: details: 10 years household members: spouse Smoking Status: Former smoker alcohol intake: current substance use type: does not use Smoking Status: Former smoker alcohol intake frequency: a few times a month Substance Use Type: does not use Exam Narrative Exam Narrative: GENERAL: 79 year old patient appears stated age. Well-developed patient, in mild distress. In severe dementia not able to provide history by herself HEAD: traumatic through the mid forehead with scab and swelling of the left orbital area eyelid. Normocephalic. EYES: Pupils equal round and reactive. Extraocular motions intact. No scleral icterus. No injection or drainage. Evidence of trauma and swelling redness to the left periorbital area ENT: Nose without bleeding, purulent drainage. Throat without erythema, tonsillar hypertrophy or exudate. Airway patent. NECK: Trachea midline. Non tender CARDIOVASCULAR: Regular rate and rhythm without murmurs, gallops, or rubs. RESPIRATORY: Clear to auscultation. Breath sounds equal bilaterally. No wheezes, rales, or rhonchi. GASTROINTESTINAL: Abdomen soft, non-tender, nondistended. EXTREMITIES: No edema or joint tenderness. BACK: Nontender without deformity or crepitance. No flank tenderness. NEURO: AOx3. SKIN: No rash or erythema of visible areas Initial Vital Signs Initial Vital Signs: Vital Signs Temperature 98.7 F 11/11/23 15:45 Pulse Rate 83 11/11/23 15:45 Respiratory Rate 18 11/11/23 15:45 Blood Pressure 211/96 H 11/11/23 15:45 Pulse Oximetry 95 11/11/23 15:45 Oxygen Delivery Method Room Air 11/11/23 15:45 Course Orders Ordered: ED Orders 11/11/23 16:34 CT facial bones wo con Stat 11/11/23 16:36 CT head/brain wo con Stat Discontinued Medications Acetaminophen (Acetaminophen 325 Mg Tablet) 650 mg PO NOW ONE Stop: 11/11/23 16:19 Last Admin: 11/11/23 16:48 Dose: 650 mg Documented By: GUANAKO Cephalexin HCl (Cephalexin 250 Mg Capsule) 500 mg PO NOW ONE Stop: 11/11/23 16:24 Last Admin: 11/11/23 16:47 Dose: 500 mg Documented By: SPF Vital Signs Vital signs: Vital Signs - 8 hr 11/11/23 15:45 Temperature 98.7 F Pulse Rate 83 Respiratory Rate 18 Blood Pressure 211/96 H Pulse Oximetry 95 Oxygen Delivery Method Room Air MDM - Eye Problem Imaging Data CT scan - head: Radiologist's Impression: CT of the head is negative PROCEDURE: CT FACIAL BONES WO CON INDICATIONS: bilaterl eye swelling, facial swelling TECHNIQUE: Noncontrast 2.5 mm thick axial images acquired from the mandible through the frontal sinuses, with coronal and sagittal reformatting. For radiation dose reduction, the following was used: automated exposure control, adjustment of mA and/or kV according to patient size. COMPARISON: None. FINDINGS: Image quality: Degraded by motion Bones: No displaced fracture. Orbital olson are intact. Nasal bone and septum are intact. Mandible is intact. Zygomatic arches and pterygoid plates are intact. No skull base fracture. Sinuses and mastoids: Mucosal thickening of the ethmoid air cells. There is opacification of the left sphenoid sinus. Soft tissues: Soft tissue contusion of the supraorbital region and left periorbital region. No significant retrobulbar are fat stranding. Brain: Separately dictated IMPRESSION: Soft tissue contusion of the forehead and left periorbital regions. No displaced fracture. Paranasal sinus disease, most significantly in the left sphenoid. Dictated by: Chris Samuels M.D. on 11/11/2023 at 17:09 Approved by: Chris Samuels M.D. on 11/11/2023 at 17:12 [facility] Narrative Medical decision making narrative: 83-year-old female history of advanced dementia transfer by a family member to the emergency room for evaluation of potential trauma to the left forehead eye area. Patient was seen by a family member approximately a week ago at that time patient appeared normal, today the staff member noticed that there is some swelling to the facial area and recommended to come to the emergency room for evaluation, there is some old scab approximately 3-4 days of injury, no active bleeding at this time, there is some swelling to the left orbital eyelid area with no evidence of pus drainage. Patient is able to open her eyes on command and respond to pain stimuli. According to the family member, patient has declined quite drastically over 1 month, patient transfer from assisted living facility to a residential facility because of this. Patient has normal respiration and blood pressure with systolic more than 200, according to the son-in-law this is ?normal to her?. Patient's own complaint of chest pain no complaint of shortness of breath no nausea no vomiting. Based on my H&P differential diagnosis include potential intracranial bleed following the traumatic injury to the forehead left orbital area, potential orbital fracture, potential cellulitis of the left orbital area secondary to recent traumatic injury, I have described to the patient and family member that we will need to CT scan and facial scan her to rule out intracranial bleed and fracture of the face, we will go ahead and treat the left orbital area infection. Family members agreeable. Code status, DNR DNR Discharge Plan Departure Patient Disposition: Home Clinical Impression: Hypertension, uncontrolled Contusion of face Qualifiers: Encounter type: initial encounter Qualified Code(s): S00.83XA - Contusion of other part of head, initial encounter Abrasion of face with infection Qualifiers: Encounter type: initial encounter Qualified Code(s): S10.81XA - Abrasion of other specified part of neck, initial encounter Instructions: DI for Eye Contusion, High Blood Pressure Activity Restrictions/Additional Instructions: Please follow-up with primary care doctor in 7 days for wound recheck, there may be a need for blood pressure medication adjustment please consult PCP. Prescriptions: New cephalexin 500 mg capsule 500 mg PO TID 7 Days Qty: 21 0RF No Action amlodipine 5 mg tablet 5 mg PO DAILY ondansetron HCl [Zofran] 4 mg tablet 4 mg PO Q8H Qty: 20 0RF Referrals: Vicente Carmona MD [Primary Care Provider] - Stand Alone Forms: Patient Portal/API
--- NOTE | 2023-11-11 16:30 | PC.NURSE ---
Patient's family states patient has been more combative recently and refusing PO medications. Pt's daughter and son in law requested that we do not put in IV in at this time. Dr. Rangel was notified and CT with contrast was cancelled and re ordered without contrast.
--- NOTE | 2023-11-11 16:34 | DI.CT.S_ITS ---
PROCEDURE: CT FACIAL BONES WO CON INDICATIONS: bilaterl eye swelling, facial swelling TECHNIQUE: Noncontrast 2.5 mm thick axial images acquired from the mandible through the frontal sinuses, with coronal and sagittal reformatting. For radiation dose reduction, the following was used: automated exposure control, adjustment of mA and/or kV according to patient size. COMPARISON: None. FINDINGS: Image quality: Degraded by motion Bones: No displaced fracture. Orbital olson are intact. Nasal bone and septum are intact. Mandible is intact. Zygomatic arches and pterygoid plates are intact. No skull base fracture. Sinuses and mastoids: Mucosal thickening of the ethmoid air cells. There is opacification of the left sphenoid sinus. Soft tissues: Soft tissue contusion of the supraorbital region and left periorbital region. No significant retrobulbar are fat stranding. Brain: Separately dictated IMPRESSION: Soft tissue contusion of the forehead and left periorbital regions. No displaced fracture. Paranasal sinus disease, most significantly in the left sphenoid. Dictated by: Chris Samuels M.D. on 11/11/2023 at 17:09 Approved by: Chris Samuels M.D. on 11/11/2023 at 17:12
--- NOTE | 2023-11-11 16:36 | DI.CT.S_ITS ---
PROCEDURE: CT HEAD/BRAIN WO CON INDICATIONS: Trauma TECHNIQUE: Noncontrast 4.5 mm thick angled axial sections acquired from the foramen magnum to the vertex, with coronal and sagittal reformats. For radiation dose reduction, the following was used: automated exposure control, adjustment of mA and/or kV according to patient size. COMPARISON: None. FINDINGS: Image quality: Good CSF spaces: Basal cisterns are patent. Lateral ventricles are symmetric. Volume: Vascular calcifications. 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 Volume loss is present. These findings are moderate Brain: No intracranial hemorrhage. Vaughn-white differentiation is grossly maintained. Craniofacial structures: Opacification of the left sphenoid sinus IMPRESSION: No acute intracranial abnormality. Dictated by: Chris Samuels M.D. on 11/11/2023 at 17:08 Approved by: Chris Samuels M.D. on 11/11/2023 at 17:09
[2023-11-11] MEDS: cephALEXin 250 MG CAPSULE 500 MG PO (16:47)
[2023-11-11] MEDS: ACETAMINOPHEN 325 MG TABLET 650 MG PO (16:48)
--- NOTE | 2023-11-11 17:00 | PC.NURSE ---
Patient was sat up in bed semi fowlers for PO medication trial. Pt was a ble to open her right eye to make eye contact with me and once stimulated by voice she was able to respond. Pt's family states she has refused PO medications for weeks. I assisted patient with pudding and her medication crushed in it. Pt able to swallow 4x spoonfulls of pudding with medications with no complications. Patient remains sitting up in bed.
[2023-11-11 17:13] VITALS: PULSE 86; O2SAT 96
[2023-11-11 17:21] VITALS: PULSE 90
[2023-11-11 17:38] VITALS: BP 199/150; RESP 18; O2SAT 95
--- NOTE | 2023-11-11 17:43 | PC.NURSE ---
Pt was able to tolerate PO medications. I washed her face with seperate warm washcloths for each eye. Pt has contusion and scabbed over abrasion to left forehead. Pt able to respond yes to pain in her face, but unable to answer further questions. She cannot open her left eye which is swollen and has crusty, white discharge. Pt is able to partially open her right eye which appears pink, no bleeding noted. Pt denies having any pain other than on her face and eyes. Family and staff at her memory care facility are unsure of how patient received these injuries. No bleeding or foreign objects noted to patients mouth. Skin is warm, pink and dry.
== END 2023-11-11 18:04 | disposition home or self-care (01) ==
PROVIDERS: Emergency Provider Emergency Medicine Emergency Medical Services; PCP Internal Medicine
DX: S00.83XA Contusion of other part of head, initial encounter (principal); S10.81XA Abrasion of other specified part of neck, initial encounter; I10 Essential (primary) hypertension
CPT/HCPCS: 70450; 70486; 99284

== ENCOUNTER 2023-11-21 21:55 | Emergency (ER) | payer OTHER, SELFPAY ==
[2019-05-22 16:07] VITALS: BMI 30.7
[2023-11-21] VITALS (24 sets, daily range): BP systolic 54–101; BP diastolic 28–59; PULSE 66–94; RESP 8–24; TEMP 36.1–36.3; O2SAT 92–97
--- NOTE | 2023-11-21 21:55 | DI.CT.S_ITS ---
PROCEDURE: CT STROKE INDICATIONS: AMS TECHNIQUE: Noncontrast 4.5 mm thick angled axial sections acquired from the foramen magnum to the vertex, with coronal reformats. For radiation dose reduction, the following was used: automated exposure control, adjustment of mA and/or kV according to patient size. COMPARISON: [facility], CT, CT HEAD/BRAIN WO CON, 11/11/2023, 16:39. FINDINGS: Image quality: Diagnostic CSF spaces: Basal cisterns are patent. Lateral ventricles are symmetric. Volume: Vascular calcifications. 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 Volume loss is present. These findings are moderate Brain: No intracranial hemorrhage. Vaughn-white differentiation is grossly maintained. Craniofacial structures: Sphenoid sinus opacification. IMPRESSION: No acute intracranial pathology. Report called to Dr. Ferrer. If there is high concern for infarct, consider MRI. Sphenoid sinus opacifications This study fulfills neurological imaging criteria for inclusion or exclusion of acute stroke therapies based on available published neurological imaging guidelines. Dictated by: Chris Samuels M.D. on 11/21/2023 at 22:01 Approved by: Chris Samuels M.D. on 11/21/2023 at 22:07
--- NOTE | 2023-11-21 22:09 | ED.GENADULT ---
HPI - General Adult General Chief complaint: Neuro Symptoms/Deficit Stated complaint: Stroke Time Seen by Provider: 11/21/23 21:55 Source: EMS Mode of arrival: EMS Limitations: altered mental status History of Present Illness HPI narrative: Patient is an 83-year-old female. She arrives from [facility] for evaluation of altered mental status and concern for stroke. It was reported the patient has ?advanced dementia? initially do not have any paperwork on DNR status. No paperwork on medications. The facility was unable to provide any this information to EMS. EMS did report that prior to arrival they did get in touch with the patient's daughter confirmed the patient is a DNR/DNI. Was reported that the last time the patient was seen in her normal state of health was approximately 1700 hours at dinnertime. The patient went back to her room and was not seen again until shortly before arrival here in the emergency department. EMS reports that the patient was posturing. Also had a ?blown? left pupil and pinpoint right pupil. Patient was also hypotensive. Patient is unable to provide any HPI or review of system. Related Data Home Medications Medication Instructions Recorded Confirmed amlodipine 5 mg tablet 5 mg PO DAILY 05/22/19 05/22/19 Previous Rx's Medication Instructions Recorded ondansetron HCl 4 mg tablet 4 mg PO Q8H #20 tabs 06/10/20 (Zofran) morphine 10 mg/5 mL oral solution 2.5 mg (1.25 mL) PO Q4H PRN pain 11/22/23 #100 mL Allergies Allergy/AdvReac Type Severity Reaction Status Date / Time No Known Drug Allergies Allergy Verified 11/11/23 15:45 Review of Systems Review of Systems ROS Unobtainable: Unobtainable due to medical condition Patient History Medical History (Updated 11/26/23 @ 00:00 by ) Dyslipidemia Hypertension Surgical History Status post hysterectomy Status post breast reduction Family History Brother Diabetes mellitus Hypertension Father Heart disease Hypertension Stroke Sister Heart disease Hypertension High cholesterol Stroke Sister High cholesterol Social History marital status: details: 10 years household members: spouse Smoking Status: Former smoker alcohol intake: current substance use type: does not use Smoking Status: Former smoker alcohol intake frequency: a few times a month Substance Use Type: does not use Exam Initial Vital Signs Initial Vital Signs: Vital Signs Temperature 97 F L 11/21/23 22:00 Pulse Rate 91 H 11/21/23 22:00 Respiratory Rate 8 L 11/21/23 22:00 Blood Pressure 101/59 L 11/21/23 22:00 Pulse Oximetry 96 11/21/23 22:00 Oxygen Delivery Method Room Air 11/21/23 22:00 HENFL Head: other Mouth: moist mucous membranes Eyes Other: Right pupil 1-2 mm, pinpoint, not reactive, left pupil 8 mm, nonreactive Resp Effort & Inspection: not tachypneic Auscultation: crackles Cardio Rate: regular rate Rhythm: regular rhythm GI Inspection: non-distended Palpation: soft Skin Other: Skin crusting to the left forehead and left nose. Neuro Other: Patient has unequal pupils. Left side larger than right. Nonreactive. No purposeful movements at baseline to her extremities. She appears to have decorticate posturing to her upper extremities. She did withdrawal from painful stimuli to lower extremities. Seems to be equal bilaterally. She did not withdraw to painful stimuli to upper extremities. Extrem Other: Patient appears to have decorticate posturing with her upper extremities. No gross deformities Scores GCS Plush coma scale eye opening: None Katelynn coma scale verbal response: None Plush coma scale motor response: Normal flexion Katelynn coma scale total score: 6 Course Orders Ordered: ED Orders 11/21/23 21:55 CT Stroke Stat 11/21/23 22:05 EKG-12 Lead Stat 11/21/23 22:10 Basic Metabolic Panel Stat Complete Blood Count AUTO DIFF Stat Vital Signs Vital signs: Vital Signs - 8 hr 11/21/23 22:00 11/21/23 22:06 11/21/23 22:15 Temperature 97 F L Pulse Rate 91 H 94 H 84 Respiratory Rate 8 L 19 19 Blood Pressure 101/59 L Pulse Oximetry 96 92 Oxygen Delivery Method Room Air 11/21/23 22:15 11/21/23 22:18 11/21/23 22:18 Temperature Pulse Rate 85 Respiratory Rate 23 Blood Pressure 60/39 L 71/42 L Pulse Oximetry 95 Oxygen Delivery Method 11/21/23 22:20 11/21/23 22:20 11/21/23 22:25 Temperature Pulse Rate 84 Respiratory Rate 17 Blood Pressure 65/35 L 62/37 L Pulse Oximetry 95 Oxygen Delivery Method 11/21/23 22:25 11/21/23 22:30 11/21/23 22:30 Temperature Pulse Rate 78 74 Respiratory Rate 22 18 Blood Pressure 58/34 L Pulse Oximetry 95 95 Oxygen Delivery Method 11/21/23 22:35 11/21/23 22:35 11/21/23 22:40 Temperature Pulse Rate 71 Respiratory Rate 20 Blood Pressure 56/30 L 54/28 L Pulse Oximetry 95 Oxygen Delivery Method 11/21/23 22:40 11/21/23 22:45 11/21/23 22:45 Temperature Pulse Rate 68 68 Respiratory Rate 19 20 Blood Pressure 55/32 L Pulse Oximetry 96 94 Oxygen Delivery Method 11/21/23 22:50 11/21/23 22:50 11/21/23 22:55 Temperature Pulse Rate 66 Respiratory Rate 24 Blood Pressure 58/33 L 58/34 L Pulse Oximetry 96 Oxygen Delivery Method 11/21/23 22:55 11/21/23 23:00 11/21/23 23:00 Temperature 97.3 F L Pulse Rate 67 67 Respiratory Rate 24 21 Blood Pressure 60/34 L Pulse Oximetry 95 93 Oxygen Delivery Method 11/21/23 23:05 11/21/23 23:05 11/21/23 23:10 Temperature Pulse Rate 70 Respiratory Rate 22 Blood Pressure 69/48 L 71/46 L Pulse Oximetry 95 Oxygen Delivery Method 11/21/23 23:10 11/21/23 23:15 11/21/23 23:15 Temperature Pulse Rate 72 70 Respiratory Rate 22 21 Blood Pressure 77/44 L Pulse Oximetry 94 94 Oxygen Delivery Method 11/21/23 23:20 11/21/23 23:20 11/21/23 23:25 Temperature Pulse Rate 72 74 Respiratory Rate 23 22 Blood Pressure 73/46 L Pulse Oximetry 95 95 Oxygen Delivery Method 11/21/23 23:25 11/21/23 23:30 11/21/23 23:30 Temperature Pulse Rate 74 Respiratory Rate 22 Blood Pressure 78/48 L 84/50 L Pulse Oximetry 96 Oxygen Delivery Method 11/21/23 23:35 11/21/23 23:35 11/21/23 23:40 Temperature Pulse Rate 74 Respiratory Rate 24 Blood Pressure 84/49 L 81/47 L Pulse Oximetry 97 Oxygen Delivery Method 11/21/23 23:40 11/21/23 23:45 11/21/23 23:45 Temperature Pulse Rate 75 73 Respiratory Rate 22 22 Blood Pressure 80/50 L Pulse Oximetry 96 97 Oxygen Delivery Method 11/21/23 23:50 11/21/23 23:50 11/21/23 23:55 Temperature Pulse Rate 74 Respiratory Rate 22 Blood Pressure 79/48 L 81/51 L Pulse Oximetry 97 Oxygen Delivery Method 11/21/23 23:55 11/22/23 00:00 11/22/23 00:00 Temperature Pulse Rate 74 74 Respiratory Rate 21 22 Blood Pressure 84/47 L Pulse Oximetry 97 97 Oxygen Delivery Method 11/22/23 00:05 11/22/23 00:05 11/22/23 00:10 Temperature Pulse Rate 74 Respiratory Rate 23 Blood Pressure 82/47 L 80/51 L Pulse Oximetry 97 Oxygen Delivery Method 11/22/23 00:10 11/22/23 00:15 11/22/23 00:15 Temperature Pulse Rate 75 75 Respiratory Rate 22 23 Blood Pressure 76/46 L Pulse Oximetry 98 98 Oxygen Delivery Method 11/22/23 00:20 11/22/23 00:20 11/22/23 00:25 Temperature Pulse Rate 75 Respiratory Rate 23 Blood Pressure 78/48 L 73/45 L Pulse Oximetry 97 Oxygen Delivery Method 11/22/23 00:25 11/22/23 00:30 11/22/23 00:30 Temperature Pulse Rate 74 74 Respiratory Rate 23 24 Blood Pressure 72/42 L Pulse Oximetry 97 98 Oxygen Delivery Method 11/22/23 00:35 11/22/23 00:35 11/22/23 01:00 Temperature Pulse Rate 74 79 Respiratory Rate 23 24 Blood Pressure 70/44 L Pulse Oximetry 97 97 Oxygen Delivery Method 11/22/23 01:00 11/22/23 01:30 11/22/23 01:31 Temperature 98.7 F Pulse Rate 84 Respiratory Rate 19 Blood Pressure 82/47 L Pulse Oximetry 98 Oxygen Delivery Method 11/22/23 02:00 11/22/23 02:00 11/22/23 02:30 Temperature Pulse Rate 86 89 Respiratory Rate 18 18 Blood Pressure 98/57 L Pulse Oximetry 98 98 Oxygen Delivery Method Room Air 11/22/23 03:00 Temperature 98.9 F Pulse Rate Respiratory Rate Blood Pressure Pulse Oximetry Oxygen Delivery Method Medical Decision Making Medical Records Medical records reviewed: Yes I reviewed the patient's medical records. Lab Data Lab results reviewed: Yes I reviewed the patient's lab results. 11/21/23 22:10 11/21/23 22:10 Labs: Lab Results 11/21/23 Range/Units 22:10 WBC 15.7 H (4.5-11.0) X10^3/uL RBC 5.26 H (4.0-5.2) X10^6/uL Hgb 17.6 H (12.0-16.0) g/dL Hct 51.2 H (36-46) % MCV 97.4 (80-100) fL MCH 33.6 (26-34) PG MCHC 34.5 (30-36) % RDW 13.2 (11.6-14.8) % Plt Count 231 (150-400) X10^3/uL Neut % (Auto) 84.1 H (50-75) % Lymph % (Auto) 9.2 L (25-40) % Pettis % (Auto) 5.9 (3-14) % Eos % (Auto) 0.4 L (2-4) % Baso % (Auto) 0.4 (0-2) % Neut # (Auto) 52699 H (4543-0984) /uL Lymph # (Auto) 1400 (0898-1224) /uL Pettis # (Auto) 900 (0-900) /uL Eos # (Auto) 100 (0-450) /uL Baso # (Auto) 100 (0-100) /uL Sodium 142 (137-145) mmol/L Potassium 3.7 (3.4-5.1) mmol/L Chloride 104 (98-107) mmol/L Carbon Dioxide 21 L (22-32) mmol/L BUN 40 H (7-17) mg/dL Creatinine 2.03 H (0.52-1.04) mg/dL Estimated GFR 24 L (>60) mL/min BUN/Creatinine Ratio 19.7 (6-22) Glucose 178 H (80-110) mg/dL Calcium 9.6 (8.4-10.2) mg/dL Point of Care Testing Glucose POC 175 Point of care testing: Point of Care Testing Glucose POC [address] scan - head: Radiologist's Impression: PROCEDURE: CT STROKE INDICATIONS: AMS TECHNIQUE: Noncontrast 4.5 mm thick angled axial sections acquired from the foramen magnum to the vertex, with coronal reformats. For radiation dose reduction, the following was used: automated exposure control, adjustment of mA and/or kV according to patient size. COMPARISON: [facility], CT, CT HEAD/BRAIN WO CON, 11/11/2023, 16:39. FINDINGS: Image quality: Diagnostic CSF spaces: Basal cisterns are patent. Lateral ventricles are symmetric. Volume: Vascular calcifications. 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 Volume loss is present. These findings are moderate Brain: No intracranial hemorrhage. Vaughn-white differentiation is grossly maintained. Craniofacial structures: Sphenoid sinus opacification. IMPRESSION: No acute intracranial pathology. Report called to Dr. Ferrer. If there is high concern for infarct, consider MRI. Sphenoid sinus opacifications ECG Data Attestation: I personally reviewed and interpreted this ECG as follows: Interpretation: EKG shows quite a bit of artifact. Normal axis. Rate of 87 MDM Narrative Medical decision making narrative: Upon arrival patient went directly to the head CT. There were no signs of intracranial hemorrhage. Given her presentation I have a high suspicion that there has been some sort of intracranial insult potentially a stroke. She appears to have decorticate posturing of her upper extremities although she does withdrawal to discomfort to her lower extremities. Attempted to contact the patient's daughter to discuss the case however unable to reach her. They eventually did arrived to the ER. They did provide a POLST form which does confirm that the patient is a DNR with selective treatment. I had a discussion with them regarding her presentation today. They agreed that the focus should be on comfort. She has been hypotensive with a systolic blood pressures in the 50s to 70s. Family states that normally she has a very high blood pressure with a systolic in the 180s to 200s. She was seen here in the emergency department a couple weeks ago for was initially thought of as a fall and a head injury however after the past couple days the concern now is that she has shingles to her left forehead. I agree that the crusting noted on the left side of her forehead very well could be shingles. I do not see active vesicular lesions. There is crusting. It does not cross midline. Initial plan was to admit to the hospital for comfort measures and hospice consultation however after discussion with the hospitalist he stated that since she is already at a nursing facility that patient could be discharged back to that facility and hospice can be initiated at that point. I then discussed the case with Dr. Mckeon who is the patient's primary provider. She agrees that the patient can be discharged back to the living facility however unfortunately there is no way for the patient to receive any comfort medications such as morphine if needed overnight due to the lack of pharmacy availability. Plan will be to keep the patient here in the emergency department until morning when the patient will be discharged back to the facility. This will allow us to continue to provide comfort measures until a prescription can be given to family. We will arrange transport for 0800 hours in the morning. 0300: Patient's heart rate is now in the 90s. Blood pressure has been systolic in the 80s. She continues to have a dilated left pupil however the right pupil is less pinpoint. Patient seems to have less posturing of her upper extremities. Patient was repositioned by nursing staff. A glycerin swab was used in the patient's mouth that she is breathing from her mouth. She did respond to this. Patient would not open her eyes to sound. She did grimace with painful stimuli to her left thumb. We will continue with the goal of comfort. We will hold on further lab testing or radiologic studies for now. Discharge Plan Departure Patient Disposition: Home Clinical Impression: Altered mental status, Fixed dilated pupil of left eye Activity Restrictions/Additional Instructions: I have discussed the case with Dr. Mckeon. I do recommend hospice consultation for which she agrees.. A prescription for liquid morphine is provided for comfort measures. Dr. Mckeon will continue with comfort measures. Prescriptions: New morphine 10 mg/5 mL solution 2.5 mg PO Q4H PRN (Reason: pain) Qty: 100 0RF No Action amlodipine 5 mg tablet 5 mg PO DAILY ondansetron HCl [Zofran] 4 mg tablet 4 mg PO Q8H Qty: 20 0RF Referrals: Vicente Carmona MD [Primary Care Provider] - Stand Alone Forms: Patient Portal/API
[2023-11-21 22:23] LABS: Add Manual Diff / Slide Review NO; Basophils Absolute Auto 100 /uL (0-100); Basophils Percent Auto 0.4 % (0-2); Eosinophils Absolute Auto 100 /uL (0-450); Eosinophils Percent Auto 0.4 % (2-4); Hematocrit 51.2 % (36-46); Hemoglobin 17.6 g/dL (12.0-16.0); Lymphocytes Absolute Auto 1400 /uL (1100-4500); Lymphocytes Percent Auto 9.2 % (25-40); Mean Corpuscular HGB Conc 34.5 % (30-36); Mean Corpuscular Hemoglobin 33.6 PG (26-34); Mean Corpuscular Volume 97.4 fL (80-100); Monocytes Absolute Auto 900 /uL (0-900); Monocytes Percent Auto 5.9 % (3-14); Neutrophils Absolute Auto 13200 /uL (1500-7000); Neutrophils Percent Auto 84.1 % (50-75); Platelet Count 231 X10^3/uL (150-400); Red Blood Cell Count 5.26 X10^6/uL (4.0-5.2); Red Cell Distribution Width 13.2 % (11.6-14.8); White Blood Cell Count 15.7 X10^3/uL (4.5-11.0)
--- NOTE | 2023-11-21 22:25 | PC.NURSE ---
Unable to do complete nih due to pt is unresponsive
[2023-11-21 22:30] LABS: BUN Creatinine Ratio 19.7 (6-22); Blood Urea Nitrogen 40 mg/dL (7-17); Calcium 9.6 mg/dL (8.4-10.2); Carbon Dioxide 21 mmol/L (22-32); Chloride 104 mmol/L (98-107); Estimated Glomerular Filt Rate 24 mL/min (>60); Glucose 178 mg/dL (80-110); HEMOLYSIS < 15 (0-50); Potassium 3.7 mmol/L (3.4-5.1); Sodium 142 mmol/L (137-145)
[2023-11-22] VITALS (24 sets, daily range): BP systolic 70–129; BP diastolic 42–76; PULSE 74–97; RESP 16–24; TEMP 37.1–37.3; O2SAT 96–99
--- NOTE | 2023-11-22 02:45 | PC.NURSE ---
Addendum entered by Suellen Portillo R.N. 11/22/23 02:59: Pt's arms no longer postering. able to lay arms at side after repositioning. Turned bear hugger off at this time. Original Note: Turned patient. Checked pupils, right pupil 2mm and reactive to light, left pupil continues to be dilated and non reactive. Eyes continually moving left and right. Pt did grimace when removed ear probe spo2 monitor and hair was caught on sticker. turned Patient to left side.
== END 2023-11-22 08:16 | disposition home or self-care (01) ==
PROVIDERS: Emergency Provider Emergency Medicine; PCP Internal Medicine
DX: R41.82 Altered mental status, unspecified (principal); H57.04 Mydriasis; R79.89 Other specified abnormal findings of blood chemistry; R07.9 Chest pain, unspecified
CPT/HCPCS: 70450; 80048; 82962; 85025; 93005; 93010; 99284